=== PATIENT | male | born 1950 | race Caucasian/White ===

== ENCOUNTER 2016-05-19 11:40 | Inpatient (IN) | payer BC, MEDICARE ==
[2016-05-19] MEDS ORDERED: Ondansetron 4 MG/2 ML SDV IVPUSH PRN (12:00)
--- NOTE | 2016-05-19 12:07 | PCM.HP ---
H&P History of Present Illness - General Date of Service: 05/19/16 Admit Problem/Dx: Admission Diagnosis/Problem Admission Diagnosis/Problem Cellulitis Source of Information: Patient, EMS notes reviewed History Limitations: Reports: No limitations - History of Present Illness Initial Comments - Free Text/Narative: Patient was evaluated in the clinic yesterday for cellulitis of the right LE, treated with Rocephin and oral bactrim. Comes into the clinic today for a recheck and feeling worse. Chills and increased pain to the leg today. Onset of Symptoms: Reports: gradual Duration of Symptoms: Reports: Getting worse Location: Reports: lower extremity, right Quality: Reports: Ache - Related Data Allergies/Adverse Reactions: Allergies Allergy/AdvReac Type Severity Reaction Status Date / Time peanut Allergy Severe Anaphylactic Verified 08/24/15 21:44 Shock aspirin Allergy Unknown Stomach Verified 08/24/15 21:44 Upset amoxicillin trihydrate Allergy intolerance Verified 08/24/15 21:44 [From Augmentin] ceftriaxone sodium Allergy intolerance Verified 08/24/15 21:44 [From Rocephin] potassium clavulanate Allergy intolerance Verified 08/24/15 21:44 [From Augmentin] Home Medications: Home Meds Cholecalciferol (Vitamin D3) [Vitamin D3] 1 tab PO DAILY 10/30/13 [History] Clotrimazole/Betamethasone Dip [Lotrisone Cream] 1 applic TOP BID PRN 10/30/13 [ History] EPINEPHrine [Epipen] 0.3 mg IM ASDIRECTED PRN 10/30/13 [History] Metoprolol Succinate [Toprol XL] 25 mg PO DAILY 10/30/13 [History] Vitamin B Complex [B Complex] 1 tab PO BEDTIME 10/30/13 [History] Hydrocodone/Acetaminophen [Hydrocodone-Acetaminophen 5-325] 1 - 2 tab PO Q6H PRN 11/24/13 [History] diphenhydrAMINE [Benadryl] 50 mg PO Q4H PRN #100 cap 10/21/14 [Rx] Ranitidine [Zantac] 150 mg PO BID PRN 08/24/15 [History] Past Medical History HEENT History: Reports: None Cardiovascular History: Reports: Hypertension Respiratory History: Reports: None Gastrointestinal History: Reports: None Genitourinary History: Reports: None Musculoskeletal History: Reports: None Neurological History: Reports: None Psychiatric History: Reports: Depression Endocrine/Metabolic History: Reports: Diabetes, type II, Obesity/BMI 30+ Hematologic History: Reports: None Immunologic History: Reports: None Oncologic (Cancer) History: Reports: Colon Dermatologic History: Reports: Psoriasis - Infectious Disease History Infectious Disease History: Reports: Measles, Mumps - Past Surgical History Head Surgeries/Procedures: Reports: None HEENT Surgical History: Reports: Oral surgery Cardiovascular Surgical History: Reports: None GI Surgical History: Reports: Appendectomy, Bariatric procedure, Cholecystectomy , Colon, Hernia, inguinal Endocrine Surgical History: Reports: None Neurological Surgical History: Reports: None Musculoskeletal Surgical History: Reports: None Oncologic Surgical History: Reports: None Dermatological Surgical History: Reports: None Social & Family History - Family History Family Medical History: Noncontributory - Tobacco Use Smoking Status *Q: Former Smoker Years of Tobacco use: 30 Used Tobacco, but Quit: Yes Month Tobacco Last Used: 0 Second Hand Smoke Exposure: No - Alcohol Use Days Per Week of Alcohol Use: 1 (No previous DWIs, problems with alcohol abuse, etc.) Number of Drinks Per Day: 2 (Usually mixed drinks every 3 months) Total Drinks Per Week: 2 - Recreational Drug Use Recreational Drug Use: No Drug Use in Last 12 Months: Yes Recreational Drug Last Use: Note when necessary narcotic pain medicine with last dose 11/09 - Living Situation & Occupation Living situation: Reports: (2012 from second with divorce in 1994 with 2 children from this marriage), with family (With son-in-law) Occupation: employed (Part-time in [employer], 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) H&P Review of Systems - Review of Systems: Review Of Systems: See Below General: Reports: chills, weakness, fatigue, diaphoresis HEENT: Reports: no symptoms Pulmonary: Reports: Cough Cardiovascular: Reports: no symptoms Gastrointestinal: Reports: Decreased appetite Genitourinary: Reports: frequency Musculoskeletal: Reports: leg pain Skin: Reports: rash (to RLE), erythema Psychiatric: Reports: no symptoms Neurological: Reports: No Symptoms Hematologic/Lymphatic: Reports: no symptoms Immunologic: Reports: no symptoms Exam - Exam Exam: See Below - Vital Signs Vital Signs: Last Vital Signs Temp 98.1 F 05/19/16 11:53 Pulse 68 05/19/16 11:53 Resp 16 05/19/16 11:53 BP 143/70 H 05/19/16 11:53 Pulse Ox 99 05/19/16 11:53 Weight: 230 lb - Exam Quality Assessment: DVT prophylaxis General: alert, oriented, cooperative HEENT: Conjunctiva clear Neck: supple, trachea midline Lungs: Clear to auscultation, Normal respiratory effort Cardiovascular: regular rate, regular rhythm Abdomen: normal bowel sounds, soft Back Exam: normal inspection, full range of motion Extremities: edema, increased warmth Peripheral Pulses: 1+: dorsalis pedis (L), dorsalis pedis (R) Skin: warm, dry, intact, rash Neurological: cranial nerves intact, reflexes equal bilateral Neuro Extensive - Mental Status: alert, oriented x3, normal mood/affect, normal cognition Neuro Extensive - Motor, Sensory, Reflexes: CN II-XII intact, normal gait, normal reflexes Psychiatric: alert, normal affect, normal mood *Q Meaningful Use (ADM) - VTE *Q VTE Criteria *Q: - Stroke *Q Stroke Criteria *Q: - AMI *Q AMI Criteria *Q: - Problem List (1) Cellulitis SNOMED Code(s): 873555942 ICD Code: L03.90 - CELLULITIS, UNSPECIFIED Status: Acute Current Visit: Yes Qualifiers: Site of cellulitis: extremity Site of cellulitis of extremity: lower extremity Laterality: right Qualified Code(s): L03.115 - Cellulitis of right lower limb (2) Type 2 diabetes mellitus SNOMED Code(s): 11823087 ICD Code: E11.9 - TYPE 2 DIABETES MELLITUS WITHOUT COMPLICATIONS Status: Acute Current Visit: Yes Qualifiers: Diabetes mellitus complication status: without complication Diabetes mellitus buttermaker continuous churn insulin use: unspecified intermediate insulin use status Qualified Code(s): E11.9 - Type 2 diabetes mellitus without complications (3) Hypertension SNOMED Code(s): 73685982 ICD Code: I10 - ESSENTIAL (PRIMARY) HYPERTENSION Status: Chronic Priority : Medium Current Visit: No Qualifiers: Hypertension type: essential hypertension Qualified Code(s): I10 - Essential (primary) hypertension Problem List Initiated/Reviewed/Updated: Yes Orders Last 24hrs: Active Orders 24 hr Category Date Time Status Patient Status [ADT] Routine ADT 05/19/16 11:42 Ordered Ambulate [RC] ASDIRECTED Care 05/19/16 11:42 Ordered Blood Glucose Check, Bedside [RC] BIDMEALS Care 05/19/16 11:42 Ordered Height and Weight [RC] DAILY Care 05/19/16 11:42 Ordered Intake and Output [RC] QSHIFT Care 05/19/16 11:44 Ordered May Shower [RC] ASDIRECTED Care 05/19/16 11:42 Ordered Oxygen Therapy [RC] PRN Care 05/19/16 11:42 Ordered Peripheral IV Care [RC] . DIRECTED Care 05/19/16 11:46 Ordered VTE/DVT Education [RC] PER UNIT ROUTINE Care 05/19/16 11:42 Ordered Vital Signs [RC] Q4H Care 05/19/16 11:42 Ordered Consult to Case Management [CONS] Routine Cons 05/19/16 11:42 Ordered Consult to Pharmacy [CONS] Routine Cons 05/19/16 11:42 Active [employer] Diet [DIET] Diet 05/19/16 Lunch Ordered Chest 2V [CR] DAILY Exams 05/19/16 11:45 Ordered Extremity Non Vascular Rt [US] Routine Exams 05/19/16 12:00 Ordered C-REACTIVE PROTEIN [CHEM] DAILY Lab 05/20/16 05:11 Ordered C-REACTIVE PROTEIN [CHEM] DAILY Lab 05/21/16 05:11 Ordered C-REACTIVE PROTEIN [CHEM] DAILY Lab 05/22/16 05:11 Ordered C-REACTIVE PROTEIN [CHEM] DAILY Lab 05/23/16 05:11 Ordered CBC WITH AUTO DIFF [HEME] DAILY Lab 05/20/16 05:11 Ordered CBC WITH AUTO DIFF [HEME] DAILY Lab 05/21/16 05:11 Ordered CBC WITH AUTO DIFF [HEME] DAILY Lab 05/22/16 05:11 Ordered CBC WITH AUTO DIFF [HEME] DAILY Lab 05/23/16 05:11 Ordered COMPREHENSIVE METABOLIC PN,CMP [CHEM] DAILY Lab 05/20/16 05:11 Ordered COMPREHENSIVE METABOLIC PN,CMP [CHEM] DAILY Lab 05/21/16 05:11 Ordered COMPREHENSIVE METABOLIC PN,CMP [CHEM] DAILY Lab 05/22/16 05:11 Ordered COMPREHENSIVE METABOLIC PN,CMP [CHEM] DAILY Lab 05/23/16 05:11 Ordered CULTURE BLOOD [BC] Stat Lab 05/19/16 11:42 Ordered CULTURE BLOOD [BC] Stat Lab 05/19/16 11:46 Ordered CULTURE BLOOD [BC] Stat Lab 05/19/16 11:46 Ordered CULTURE URINE [RM] Stat Lab 05/19/16 11:42 Uncollected UA W/MICROSCOPIC [URIN] DAILY Lab 05/19/16 11:45 Uncollected Acetaminophen [Tylenol] Med 05/19/16 11:42 Ordered 650 mg PO Q4H PRN Acetaminophen/HYDROcodone [[place] 325-5 MG] Med 05/19/16 11:42 Ordered 1 tab PO Q4H PRN Meropenem [Merrem] 1 gm Med 05/19/16 12:00 Ordered Sodium Chloride 0.9% [Normal Saline] 100 ml IV Q8H Ondansetron [Zofran] Med 05/19/16 11:42 Ordered 4 mg IVPUSH Q6H PRN Sodium Chloride 0.9% [Saline Flush] Med 05/19/16 11:42 Ordered 10 ml FLUSH ASDIRECTED PRN Vancomycin 1 gm Med 05/19/16 12:00 Ordered Dextrose 5% in Water 250 ml IV Q12H Blood Culture x2 Reflex Set [OM.PC] Stat Oth 05/19/16 11:42 Ordered Peripheral IV Insertion Adult [OM.PC] Routine Oth 05/19/16 11:42 Ordered Resuscitation Status Routine Resus Stat 05/19/16 11:42 Ordered Medication Orders Acetaminophen (Tylenol) 650 mg PO Q4H PRN PRN Reason: Pain (Mild 1-3)/fever Hydrocodone Bitart/Acetaminophen ([place] 325-5 Mg) 1 tab PO Q4H PRN PRN Reason: Pain (moderate 4-6) Meropenem 1 gm/ Sodium (Chloride) 100 mls @ 200 mls/hr IV Q8H [facility] Vancomycin HCl 1 gm/ Dextrose/ (Water) 250 mls @ 165 mls/hr IV Q12H [facility] Ondansetron HCl (Zofran) 4 mg IVPUSH Q6H PRN PRN Reason: Nausea/Vomiting Sodium Chloride (Saline Flush) 10 ml FLUSH ASDIRECTED PRN PRN Reason: Keep Vein Open Assessment/Plan Comment:: Patient is admitted to Dr Adkins, started on IV Vanco and Merrem. Blood cultures are obtained. Ultrasound of RLE ordered. Tomasz monitor blood sugars. Patient requires inpatient status as failed outpatient treatment was done. Given IM Rocephin in the clinic, pharmacy to check as hospital records shows intolerance to it. Pharmacy to follow IV Vanco. Recheck labs in the morning. Patient had no further questions and agreed to the plan of care. Carmela Vega,CAR CLEANER
[2016-05-19] MEDS ORDERED: Betamethasone Dipropionate/Clotrimazole 0.05-1% Crm 15 GM Tube TOP PRN (13:24)
[2016-05-19] MEDS ORDERED: Nystatin Crm 30 GM Tube TOP PRN (13:24)
[2016-05-19] MEDS: Meropenem 1 GM in Sodium Chloride 0.9% 100 ML IV SCH ×2 (13:33→19:31)
[2016-05-19] MEDS: Sodium Chloride 0.9% 10 ML Syringe FLUSH PRN (13:33)
[2016-05-19] MEDS ORDERED: Lactated Ringers 1,000 ML IV SCH (15:30)
[2016-05-19] MEDS: Acetaminophen 325 MG Tab PO PRN ×2 (17:00→21:19)
[2016-05-19] MEDS: Sodium Chloride 0.9% 1,000 ML IV SCH (17:36)
[2016-05-19] MEDS: Insulin Aspart 100 Units/ML 3 ML Pen SUBCUT SCH (18:15)
[2016-05-19] MEDS: Donepezil 5 MG Tab PO SCH (19:31)
[2016-05-20] MEDS: Sodium Chloride 0.9% 10 ML Syringe FLUSH PRN ×2 (00:36→03:59)
[2016-05-20] MEDS: Acetaminophen 325 MG Tab PO PRN ×3 (01:40→17:11)
[2016-05-20] MEDS: Acetaminophen/HYDROcodone 325-5 MG Tab PO PRN ×2 (01:41→17:10)
[2016-05-20] MEDS: Meropenem 1 GM in Sodium Chloride 0.9% 100 ML IV SCH ×3 (04:00→19:41)
[2016-05-20] MEDS: Ferrous Sulfate 325 MG Tab PO SCH (07:29)
[2016-05-20] MEDS: metFORMIN 500 MG Tab PO SCH (07:29)
[2016-05-20] MEDS: Cholecalciferol (Vitamin D3) 1,000 Unit Tab PO SCH (07:29)
[2016-05-20] MEDS: Enoxaparin 40 MG/0.4 ML Syringe SUBCUT SCH (07:29)
[2016-05-20] MEDS: Metoprolol Succinate 25 MG Tab.ER PO SCH (07:29)
[2016-05-20] MEDS: Insulin Aspart 100 Units/ML 3 ML Pen SUBCUT SCH ×3 (07:30→17:12)
[2016-05-20 07:50] LABS: CHLORIDE,CL 102 mmol/L (98-107); SODIUM,NA 138 mmol/L (136-145)
[2016-05-20] MEDS ORDERED: Ibuprofen 600 MG Tab PO ONE (10:22)
--- NOTE | 2016-05-20 12:16 | PCM.SN ---
- Free Text/Narrative Note: 05/20/2016 Patient states taking "quite a few hydrocodone in 12 hours". Liver function tests noted to be elevated which could be from the hydrocodone/tylenol or the infection. Will monitor. Patient is on Isoniazid 300mg daily, patient was started on this medication by Dr Mary CHRIS at [facility] for latent TB infection and needs to stay on the medication for a total of 9 months and it is not to be stopped. Will continue the medication and will notify pharmacy. Carmela Vega,FUNERAL LIMOUSINE DRIVER
[2016-05-20] MEDS: ISONIAZID 300 MG PO SCH (13:43)
[2016-05-20] MEDS: Sodium Chloride 0.9% 1,000 ML IV SCH (13:44)
--- NOTE | 2016-05-20 17:28 | PCM.PN ---
- General Info Date of Service: 05/20/16 Admission Dx/Problem (Free Text): Admission Diagnosis/Problem Admission Diagnosis/Problem Cellulitis Functional Status: Reports: pain controlled - Review of Systems General: Reports: Fever, Night Sweats HEENT: Reports: no symptoms Pulmonary: Reports: no symptoms Cardiovascular: Reports: No Symptoms Gastrointestinal: Reports: No symptoms Genitourinary: Reports: no symptoms Musculoskeletal: Reports: leg pain Skin: Reports: rash (right leg) Neurological: Reports: No Symptoms Psychiatric: Reports: no symptoms - Patient Data Vitals - most recent: Last Vital Signs Temp 98.3 F 05/20/16 12:00 Pulse 69 05/20/16 12:00 Resp 20 05/20/16 12:00 BP 117/60 05/20/16 12:00 Pulse Ox 94 L 05/20/16 12:00 Weight - most recent: 230 lb 3.2 oz I&O - last 24 hours: Intake & Output 05/20/16 05/20/16 05/20/16 06:59 14:59 22:59 Intake Total 1198 1240 Output Total 400 Balance 798 1240 Lab Results last 24 hrs: Laboratory Results - last 24 hr 05/19/16 05/19/16 05/20/16 Range/Units 17:32 21:10 06:55 WBC 9.7 (4.0-10.2) K/uL RBC 4.14 L (4.33-5.41) M/uL Hgb 11.6 L (13.1-16.8) g/dL Hct 36.7 L (39.0-49.0) % MCV 88.6 (84.0-98.0) fL MCH 28.0 L (28.2-33.3) pg MCHC 31.6 L (31.7-36.0) g/dL RDW 13.7 (11.2-14.1) % Plt Count 134 L (150-350) K/uL Neut % (Auto) 73.3 (45.0-80.0) % Lymph % (Auto) 15.8 (10.0-50.0) % Benson % (Auto) 9.8 (2.0-14.0) % Eos % (Auto) 0.9 (0.0-5.0) % Baso % (Auto) 0.2 (0.0-2.0) % Neut # (Auto) 7.13 H (1.40-7.00) K/uL Lymph # (Auto) 1.54 (0.50-3.50) K/uL Benson # (Auto) 0.95 (0.00-1.00) K/uL Eos # (Auto) 0.09 (0.00-0.50) K/uL Baso # (Auto) 0.02 (0.00-0.20) K/uL Sodium (136-145) mmol/L Potassium (3.5-5.1) mmol/L Chloride (98-107) mmol/L Carbon Dioxide (21.0-32.0) mmol/L BUN (7-18) mg/dL Creatinine (0.51-1.17) mg/dL Est Cr Clr Drug Dosing mL/min Estimated GFR (MDRD) mL/min Glucose (74-106) mg/dL POC Glucose 302 H* 213 H (65-110) mg/dl Lactic Acid (0.4-2.0) mmol/L Calcium (8.5-10.1) mg/dL Magnesium (1.8-2.4) mg/dL Total Bilirubin (0.2-1.0) mg/dL AST (15-37) U/L ALT (12-78) U/L Alkaline Phosphatase (46-116) IU/L C-Reactive Protein (<=0.9) mg/dL Total Protein (6.4-8.2) g/dL Albumin (3.4-5.0) g/dL Vancomycin Trough (10-20) ug/mL 05/20/16 05/20/16 05/20/16 Range/Units 06:55 06:55 07:12 WBC (4.0-10.2) K/uL RBC (4.33-5.41) M/uL Hgb (13.1-16.8) g/dL Hct (39.0-49.0) % MCV (84.0-98.0) fL MCH (28.2-33.3) pg MCHC (31.7-36.0) g/dL RDW (11.2-14.1) % Plt Count (150-350) K/uL Neut % (Auto) (45.0-80.0) % Lymph % (Auto) (10.0-50.0) % Benson % (Auto) (2.0-14.0) % Eos % (Auto) (0.0-5.0) % Baso % (Auto) (0.0-2.0) % Neut # (Auto) (1.40-7.00) K/uL Lymph # (Auto) (0.50-3.50) K/uL Benson # (Auto) (0.00-1.00) K/uL Eos # (Auto) (0.00-0.50) K/uL Baso # (Auto) (0.00-0.20) K/uL Sodium 138 (136-145) mmol/L Potassium 3.9 (3.5-5.1) mmol/L Chloride 102 (98-107) mmol/L Carbon Dioxide 25.8 (21.0-32.0) mmol/L BUN 15 (7-18) mg/dL Creatinine 0.90 (0.51-1.17) mg/dL Est Cr Clr Drug Dosing 81.55 mL/min Estimated GFR (MDRD) > 60 mL/min Glucose 178 H (74-106) mg/dL POC Glucose 175 H (65-110) mg/dl Lactic Acid 1.3 (0.4-2.0) mmol/L Calcium 7.9 L (8.5-10.1) mg/dL Magnesium 2.0 (1.8-2.4) mg/dL Total Bilirubin 0.4 (0.2-1.0) mg/dL AST 77 H (15-37) U/L ALT 116 H (12-78) U/L Alkaline Phosphatase 113 (46-116) IU/L C-Reactive Protein 26.2 H (<=0.9) mg/dL Total Protein 6.6 (6.4-8.2) g/dL Albumin 2.6 L (3.4-5.0) g/dL Vancomycin Trough (10-20) ug/mL 05/20/16 05/20/16 05/20/16 Range/Units 11:37 12:30 16:59 WBC (4.0-10.2) K/uL RBC (4.33-5.41) M/uL Hgb (13.1-16.8) g/dL Hct (39.0-49.0) % MCV (84.0-98.0) fL MCH (28.2-33.3) pg MCHC (31.7-36.0) g/dL RDW (11.2-14.1) % Plt Count (150-350) K/uL Neut % (Auto) (45.0-80.0) % Lymph % (Auto) (10.0-50.0) % Benson % (Auto) (2.0-14.0) % Eos % (Auto) (0.0-5.0) % Baso % (Auto) (0.0-2.0) % Neut # (Auto) (1.40-7.00) K/uL Lymph # (Auto) (0.50-3.50) K/uL Benson # (Auto) (0.00-1.00) K/uL Eos # (Auto) (0.00-0.50) K/uL Baso # (Auto) (0.00-0.20) K/uL Sodium (136-145) mmol/L Potassium (3.5-5.1) mmol/L Chloride (98-107) mmol/L Carbon Dioxide (21.0-32.0) mmol/L BUN (7-18) mg/dL Creatinine (0.51-1.17) mg/dL Est Cr Clr Drug Dosing mL/min Estimated GFR (MDRD) mL/min Glucose (74-106) mg/dL POC Glucose 124 H 137 H (65-110) mg/dl Lactic Acid (0.4-2.0) mmol/L Calcium (8.5-10.1) mg/dL Magnesium (1.8-2.4) mg/dL Total Bilirubin (0.2-1.0) mg/dL AST (15-37) U/L ALT (12-78) U/L Alkaline Phosphatase (46-116) IU/L C-Reactive Protein (<=0.9) mg/dL Total Protein (6.4-8.2) g/dL Albumin (3.4-5.0) g/dL Vancomycin Trough 6.9 L (10-20) ug/mL Arnie Results last 24 hrs: Microbiology 05/19/16 12:05 Aerobic Blood Culture - Preliminary Blood - Venous NO GROWTH AFTER 1 DAY Anaerobic Blood Culture - Preliminary NO GROWTH AFTER 1 DAY 05/19/16 12:00 Aerobic Blood Culture - Preliminary Blood NO GROWTH AFTER 1 DAY Anaerobic Blood Culture - Preliminary NO GROWTH AFTER 1 DAY Med Orders - Current: Current Medications Acetaminophen (Tylenol Extra Strength) 1,000 mg PO Q8H [facility] Betamethasone/Clotrimazole (Lotrisone) 0 gm TOP BID PRN PRN Reason: Rash Cholecalciferol (Vitamin D3) 1,000 units PO DAILY [facility] Last Admin: 05/20/16 07:29 Dose: 1,000 units Donepezil HCl (Aricept) 5 mg PO BEDTIME [facility] Last Admin: 05/19/16 19:31 Dose: 5 mg Enoxaparin Sodium (Lovenox) 40 mg SUBCUT DAILY [facility] Last Admin: 05/20/16 07:29 Dose: 40 mg Ferrous Sulfate (Ferrous Sulfate) 325 mg PO DAILY [facility] Last Admin: 05/20/16 07:29 Dose: 325 mg Meropenem 1 gm/ Sodium (Chloride) 100 mls @ 200 mls/hr IV Q8H [facility] Last Admin: 05/20/16 12:09 Dose: 200 mls/hr Sodium Chloride (Normal Saline) 1,000 mls @ 100 mls/hr IV ASDIRECTED [facility] Last Admin: 05/20/16 13:44 Dose: 100 mls/hr Vancomycin HCl 1.25 gm/ Sodium (Chloride) 250 mls @ 135 mls/hr IV Q12H [facility] Last Admin: 05/20/16 13:44 Dose: 135 mls/hr Ibuprofen (Motrin) 800 mg PO Q8H [facility] Insulin Aspart (Novolog) 0 unit SUBCUT TIDMEALS [facility] PRN Reason: Protocol Last Admin: 05/20/16 17:12 Dose: Not Given Metformin HCl (Glucophage) 500 mg PO DAILY [facility] Last Admin: 05/20/16 07:29 Dose: 500 mg Metoprolol Succinate (Toprol Xl) 25 mg PO DAILY [facility] Last Admin: 05/20/16 07:29 Dose: 25 mg Isoniazid 300mg (Tablets) 1 each PO DAILY [facility] Last Admin: 05/20/16 13:43 Dose: 1 each Nystatin (Nystatin Crm) 0 gm TOP QID PRN PRN Reason: other Ondansetron HCl (Zofran) 4 mg IVPUSH Q6H PRN PRN Reason: Nausea/Vomiting Oxycodone HCl (Oxycodone) 5 mg PO Q4H PRN PRN Reason: Pain Sodium Chloride (Saline Flush) 10 ml FLUSH ASDIRECTED PRN PRN Reason: Keep Vein Open Last Admin: 05/20/16 03:59 Dose: 10 ml Discontinued Medications Acetaminophen (Tylenol) 650 mg PO Q4H PRN PRN Reason: Pain (Mild 1-3)/fever Last Admin: 05/20/16 17:11 Dose: 650 mg Hydrocodone Bitart/Acetaminophen ([place] 325-5 Mg) 1 tab PO Q4H PRN PRN Reason: Pain (moderate 4-6) Last Admin: 05/20/16 17:10 Dose: 1 tab Vancomycin HCl 1 gm/ Sodium (Chloride) 250 mls @ 165 mls/hr IV Q12H [facility] Last Admin: 05/20/16 00:36 Dose: 165 mls/hr Lactated Ringer's (Ringers, Lactated) 1,000 mls @ 50 mls/hr IV ASDIRECTED [facility] Last Admin: 05/19/16 16:14 Dose: 50 mls/hr Ibuprofen (Motrin) 600 mg PO ONETIME ONE Stop: 05/20/16 10:23 Last Admin: 05/20/16 10:30 Dose: 600 mg - Exam General: alert, cooperative, mild distress HEENT: Mucous membr. moist/pink Neck: trachea midline, no JVD Lungs: Clear to auscultation Cardiovascular: Regular Rate, Regular Rhythm Abdomen: bowel sounds present, soft, no tenderness, no distension (Male) Exam: Deferred Back Exam: normal inspection Extremities: edema (right) Skin: rash (RLE red petechiae excoriation gong) Wound/Incisions: no drainage, erythema, erythema improving Neurological: no new focal deficit Psy/Mental Status: alert, normal affect, normal mood - Problem List & Annotations (1) Rheumatoid arthritis SNOMED Code(s): 62085886 Code(s): M06.9 - RHEUMATOID ARTHRITIS, UNSPECIFIED Status: Acute Priority : Medium Current Visit: Yes Qualifiers: Rheumatoid arthritis location: multiple sites Rheumatoid factor presence: unspecified presence Qualified Code(s): M06.9 - Rheumatoid arthritis, unspecified (2) Cellulitis SNOMED Code(s): 840809406 Code(s): L03.90 - CELLULITIS, UNSPECIFIED Status: Acute Current Visit: Yes Qualifiers: Site of cellulitis: extremity Site of cellulitis of extremity: lower extremity Laterality: right Qualified Code(s): L03.115 - Cellulitis of right lower limb (3) Type 2 diabetes mellitus SNOMED Code(s): 30960730 Code(s): E11.9 - TYPE 2 DIABETES MELLITUS WITHOUT COMPLICATIONS Status: Acute Current Visit: Yes Qualifiers: Diabetes mellitus complication status: without complication Diabetes mellitus group home insulin use: unspecified intermediate card tender insulin use status Qualified Code(s): E11.9 - Type 2 diabetes mellitus without complications (4) COPD (chronic obstructive pulmonary disease) SNOMED Code(s): 15219981 Code(s): J44.9 - CHRONIC OBSTRUCTIVE PULMONARY DISEASE, UNSPECIFIED Status : Chronic Priority: Medium Current Visit: No Annotation/Comment:: No current inhaler or nebulizer therapy. Continue to observe closely by his regular provider with current mild bronchitis (5) Heart disease SNOMED Code(s): 81730236 Code(s): I51.9 - HEART DISEASE, UNSPECIFIED Status: Chronic Priority: Medium Current Visit: No Annotation/Comment:: No recent chest pain or anginal complaints (6) Hyperlipidemia SNOMED Code(s): 25427042 Code(s): E78.5 - HYPERLIPIDEMIA, UNSPECIFIED Status: Chronic Priority: Medium Current Visit: No Annotation/Comment:: Not currently under medical therapy. Continue to observe closely by his regular provider especially light of persistent obesity. Statin therapy also recommended secondary to his history of heart disease (7) Hypertension SNOMED Code(s): 33071069 Code(s): I10 - ESSENTIAL (PRIMARY) HYPERTENSION Status: Chronic Priority : Medium Current Visit: No Qualifiers: Hypertension type: essential hypertension Qualified Code(s): I10 - Essential (primary) hypertension (8) Mixed anxiety depressive disorder SNOMED Code(s): 634676945 Code(s): F41.8 - OTHER SPECIFIED ANXIETY DISORDERS Status: Chronic Priority: Medium Current Visit: No Annotation/Comment:: Stable by patient history (9) Osteoarthritis SNOMED Code(s): 955108143 Code(s): M19.90 - UNSPECIFIED OSTEOARTHRITIS, UNSPECIFIED SITE Status: Chronic Priority: Medium Current Visit: No Annotation/Comment:: Stable by patient history (10) Peptic reflux disease SNOMED Code(s): 36747663 Code(s): K21.9 - GASTRO-ESOPHAGEAL REFLUX DISEASE WITHOUT ESOPHAGITIS Status: Chronic Priority: High Current Visit: No Annotation/Comment:: Refractory to low-dose Zantac. Continue to watch closely by his regular provider especially if no improvement with today's increased Zantac therapy. Note previous history of esophageal stenosis, recurrent burping today, etc. as above. 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 Status: Acute Priority: Medium Current Visit: Yes (12) Abnormal LFTs (liver function tests) SNOMED Code(s): 363486910 Code(s): R79.89 - OTHER SPECIFIED ABNORMAL FINDINGS OF BLOOD CHEMISTRY Status: Acute Priority: High Current Visit: Yes - Problem List Review Problem List Initiated/Reviewed/Updated: Yes - My Orders Last 24 Hours: My Active Orders 05/19/16 18:00 Insulin Aspart [NovoLOG] See Protocol SUBCUT TIDMEALS 05/19/16 21:00 Blood Glucose Check, Bedside [RC] ONETIME 05/20/16 17:13 oxyCODONE 5 mg PO Q4H PRN 05/20/16 20:00 Ibuprofen [Motrin] 800 mg PO Q8H 05/21/16 00:00 Acetaminophen [Tylenol Extra Strength] 1,000 mg PO Q8H - Plan Plan:: Patient is admitted to Dr Adkins, started on IV Vanco and Merrem. Blood cultures are obtained. Ultrasound of RLE ordered. Tomasz monitor blood sugars. Patient requires inpatient status as failed outpatient treatment was done. Given IM Rocephin in the clinic, pharmacy to check as hospital records shows intolerance to it. Pharmacy to follow IV Vanco. Recheck labs in the morning. Patient had no further questions and agreed to the plan of care. Carmela Vega,CORRECTIONAL MANAGER 05/20/16 Jed Chawla MD Fevers off and on today. Leg a little better- less pain. Labs slight improvement except elevated LFTs. Continue therapy.
[2016-05-20] MEDS: Ibuprofen 400 MG Tab PO SCH (19:50)
[2016-05-20] MEDS: Donepezil 5 MG Tab PO SCH (19:50)
[2016-05-20] MEDS: Sodium Chloride 0.9% 10 ML Syringe FLUSH SCH (20:48)
[2016-05-21] MEDS: Acetaminophen 500 MG Tab PO SCH ×3 (00:34→15:35)
[2016-05-21] MEDS: Meropenem 1 GM in Sodium Chloride 0.9% 100 ML IV SCH ×3 (04:15→21:11)
[2016-05-21] MEDS: Ibuprofen 400 MG Tab PO SCH ×3 (04:15→21:16)
[2016-05-21] MEDS: Metoprolol Succinate 25 MG Tab.ER PO SCH (07:25)
[2016-05-21] MEDS: Ferrous Sulfate 325 MG Tab PO SCH (07:25)
[2016-05-21] MEDS: Cholecalciferol (Vitamin D3) 1,000 Unit Tab PO SCH (07:26)
[2016-05-21] MEDS: metFORMIN 500 MG Tab PO SCH (07:26)
[2016-05-21] MEDS: Sodium Chloride 0.9% 10 ML Syringe FLUSH SCH ×2 (07:27→21:12)
[2016-05-21] MEDS: Enoxaparin 40 MG/0.4 ML Syringe SUBCUT SCH (07:29)
[2016-05-21] MEDS: Insulin Aspart 100 Units/ML 3 ML Pen SUBCUT SCH ×3 (07:31→17:10)
[2016-05-21] MEDS: ISONIAZID 300 MG PO SCH (07:31)
[2016-05-21 08:26] LABS: CHLORIDE,CL 108 mmol/L (98-107); SODIUM,NA 141 mmol/L (136-145)
[2016-05-21] MEDS: Sodium Chloride 0.9% 10 ML Syringe FLUSH PRN (13:30)
[2016-05-21] MEDS ORDERED: Promethazine 25 MG/ML SDV IM PRN (13:30)
[2016-05-21] MEDS ORDERED: Fluconazole 100 MG Tab PO ONE (18:00)
--- NOTE | 2016-05-21 18:06 | PCM.PN ---
- General Info Date of Service: 05/21/16 Functional Status: Reports: pain controlled, tolerating diet, ambulating - Review of Systems General: Reports: No Symptoms HEENT: Reports: no symptoms Pulmonary: Reports: no symptoms Cardiovascular: Reports: No Symptoms Gastrointestinal: Reports: No symptoms Genitourinary: Reports: no symptoms Musculoskeletal: Reports: no symptoms Skin: Reports: rash (RLE improving), other (RLE edema) Neurological: Reports: No Symptoms Psychiatric: Reports: no symptoms - Patient Data Vitals - most recent: Last Vital Signs Temp 99.1 F 05/21/16 16:00 Pulse 67 05/21/16 16:00 Resp 18 05/21/16 16:00 BP 154/75 H 05/21/16 16:00 Pulse Ox 99 05/21/16 16:00 Weight - most recent: 234 lb I&O - last 24 hours: Intake & Output 05/21/16 05/21/16 05/21/16 06:59 14:59 22:59 Intake Total 974 569 3989 Output Total 500 Balance 250 850 570 Lab Results last 24 hrs: Laboratory Results - last 24 hr 05/20/16 05/21/16 05/21/16 Range/Units 22:21 07:15 07:15 WBC 7.2 (4.0-10.2) K/uL RBC 3.67 L (4.33-5.41) M/uL Hgb 10.5 L (13.1-16.8) g/dL Hct 32.8 L (39.0-49.0) % MCV 89.4 (84.0-98.0) fL MCH 28.6 (28.2-33.3) pg MCHC 32.0 (31.7-36.0) g/dL RDW 13.7 (11.2-14.1) % Plt Count 132 L (150-350) K/uL Neut % (Auto) 69.9 (45.0-80.0) % Lymph % (Auto) 15.4 (10.0-50.0) % [place] % (Auto) 11.9 (2.0-14.0) % Eos % (Auto) 2.4 (0.0-5.0) % Baso % (Auto) 0.4 (0.0-2.0) % Neut # (Auto) 5.05 (1.40-7.00) K/uL Lymph # (Auto) 1.11 (0.50-3.50) K/uL [place] # (Auto) 0.86 (0.00-1.00) K/uL Eos # (Auto) 0.17 (0.00-0.50) K/uL Baso # (Auto) 0.03 (0.00-0.20) K/uL Sodium 141 (136-145) mmol/L Potassium 3.7 (3.5-5.1) mmol/L Chloride 108 H (98-107) mmol/L Carbon Dioxide 25.0 (21.0-32.0) mmol/L BUN 12 (7-18) mg/dL Creatinine 0.83 (0.51-1.17) mg/dL Est Cr Clr Drug Dosing 88.43 mL/min Estimated GFR (MDRD) > 60 mL/min Glucose 148 H (74-106) mg/dL POC Glucose 186 H (65-110) mg/dl Calcium 7.5 L (8.5-10.1) mg/dL Total Bilirubin 0.4 (0.2-1.0) mg/dL AST 28 (15-37) U/L ALT 87 H (12-78) U/L Alkaline Phosphatase 92 (46-116) IU/L C-Reactive Protein 20.3 H (<=0.9) mg/dL Total Protein 5.9 L (6.4-8.2) g/dL Albumin 2.2 L (3.4-5.0) g/dL 05/21/16 05/21/16 05/21/16 Range/Units 07:21 11:35 17:06 WBC (4.0-10.2) K/uL RBC (4.33-5.41) M/uL Hgb (13.1-16.8) g/dL Hct (39.0-49.0) % MCV (84.0-98.0) fL MCH (28.2-33.3) pg MCHC (31.7-36.0) g/dL RDW (11.2-14.1) % Plt Count (150-350) K/uL Neut % (Auto) (45.0-80.0) % Lymph % (Auto) (10.0-50.0) % [place] % (Auto) (2.0-14.0) % Eos % (Auto) (0.0-5.0) % Baso % (Auto) (0.0-2.0) % Neut # (Auto) (1.40-7.00) K/uL Lymph # (Auto) (0.50-3.50) K/uL [place] # (Auto) (0.00-1.00) K/uL Eos # (Auto) (0.00-0.50) K/uL Baso # (Auto) (0.00-0.20) K/uL Sodium (136-145) mmol/L Potassium (3.5-5.1) mmol/L Chloride (98-107) mmol/L Carbon Dioxide (21.0-32.0) mmol/L BUN (7-18) mg/dL Creatinine (0.51-1.17) mg/dL Est Cr Clr Drug Dosing mL/min Estimated GFR (MDRD) mL/min Glucose (74-106) mg/dL POC Glucose 133 H 163 H 128 H (65-110) mg/dl Calcium (8.5-10.1) mg/dL Total Bilirubin (0.2-1.0) mg/dL AST (15-37) U/L ALT (12-78) U/L Alkaline Phosphatase (46-116) IU/L C-Reactive Protein (<=0.9) mg/dL Total Protein (6.4-8.2) g/dL Albumin (3.4-5.0) g/dL Arnie Results last 24 hrs: Microbiology 05/19/16 12:05 Aerobic Blood Culture - Preliminary Blood - Venous NO GROWTH AFTER 2 DAYS Anaerobic Blood Culture - Preliminary NO GROWTH AFTER 2 DAYS 05/19/16 12:00 Aerobic Blood Culture - Preliminary Blood NO GROWTH AFTER 2 DAYS Anaerobic Blood Culture - Preliminary NO GROWTH AFTER 2 DAYS 05/19/16 15:10 Urine Culture - Final Urine, Voided NO GROWTH AFTER 2 DAYS Med Orders - Current: Current Medications Acetaminophen (Tylenol Extra Strength) 1,000 mg PO Q8H [facility] Last Admin: 05/21/16 15:35 Dose: 1,000 mg Betamethasone/Clotrimazole (Lotrisone) 0 gm TOP BID PRN PRN Reason: Rash Cholecalciferol (Vitamin D3) 1,000 units PO DAILY [facility] Last Admin: 05/21/16 07:26 Dose: 1,000 units Donepezil HCl (Aricept) 5 mg PO BEDTIME [facility] Last Admin: 05/20/16 19:50 Dose: 5 mg Ferrous Sulfate (Ferrous Sulfate) 325 mg PO DAILY [facility] Last Admin: 05/21/16 07:25 Dose: 325 mg Fluconazole (Diflucan) 100 mg PO ONETIME ONE Stop: 05/21/16 18:01 Last Admin: 05/21/16 17:09 Dose: 100 mg Fluconazole (Diflucan) 50 mg PO DAILY [facility] Meropenem 1 gm/ Sodium (Chloride) 100 mls @ 200 mls/hr IV Q8H [facility] Last Admin: 05/21/16 12:20 Dose: 200 mls/hr Vancomycin HCl 1.25 gm/ Sodium (Chloride) 250 mls @ 135 mls/hr IV Q12H [facility] Last Admin: 05/21/16 13:28 Dose: 135 mls/hr Ibuprofen (Motrin) 800 mg PO Q8H [facility] Last Admin: 05/21/16 12:21 Dose: 800 mg Insulin Aspart (Novolog) 0 unit SUBCUT TIDMEALS [facility] PRN Reason: Protocol Last Admin: 05/21/16 17:10 Dose: Not Given Metformin HCl (Glucophage) 500 mg PO DAILY [facility] Last Admin: 05/21/16 07:26 Dose: 500 mg Metoprolol Succinate (Toprol Xl) 25 mg PO DAILY [facility] Last Admin: 05/21/16 07:25 Dose: 25 mg Isoniazid 300mg (Tablets) 1 each PO DAILY [facility] Last Admin: 05/21/16 07:31 Dose: 1 each Nystatin (Nystatin Crm) 0 gm TOP QID PRN PRN Reason: other Oxycodone HCl (Oxycodone) 5 mg PO Q4H PRN PRN Reason: Pain Promethazine HCl (Phenergan) 25 mg IM Q6H PRN PRN Reason: Nausea/Vomiting Sodium Chloride (Saline Flush) 10 ml FLUSH ASDIRECTED PRN PRN Reason: Keep Vein Open Last Admin: 05/21/16 13:30 Dose: 10 ml Sodium Chloride (Saline Flush) 10 ml FLUSH Q12HR [facility] Last Admin: 05/21/16 07:27 Dose: 10 ml Discontinued Medications Acetaminophen (Tylenol) 650 mg PO Q4H PRN PRN Reason: Pain (Mild 1-3)/fever Last Admin: 05/20/16 17:11 Dose: 650 mg Hydrocodone Bitart/Acetaminophen ([place] 325-5 Mg) 1 tab PO Q4H PRN PRN Reason: Pain (moderate 4-6) Last Admin: 05/20/16 17:10 Dose: 1 tab Enoxaparin Sodium (Lovenox) 40 mg SUBCUT DAILY [facility] Last Admin: 05/21/16 07:29 Dose: 40 mg Vancomycin HCl 1 gm/ Sodium (Chloride) 250 mls @ 165 mls/hr IV Q12H [facility] Last Admin: 05/20/16 00:36 Dose: 165 mls/hr Lactated Ringer's (Ringers, Lactated) 1,000 mls @ 50 mls/hr IV ASDIRECTED [facility] Last Admin: 05/19/16 16:14 Dose: 50 mls/hr Sodium Chloride (Normal Saline) 1,000 mls @ 100 mls/hr IV ASDIRECTED [facility] Stop: 05/20/16 23:00 Last Admin: 05/20/16 13:44 Dose: 100 mls/hr Ibuprofen (Motrin) 600 mg PO ONETIME ONE Stop: 05/20/16 10:23 Last Admin: 05/20/16 10:30 Dose: 600 mg Ondansetron HCl (Zofran) 4 mg IVPUSH Q6H PRN PRN Reason: Nausea/Vomiting - Exam Quality Assessment: DVT prophylaxis (stopped due to decreased platelets) General: alert, cooperative, no acute distress HEENT: Mucous membr. moist/pink Neck: trachea midline, no JVD Lungs: Clear to auscultation, Normal respiratory effort Cardiovascular: Regular Rate, Regular Rhythm Abdomen: bowel sounds present, soft, no tenderness, no distension (Male) Exam: Deferred Back Exam: normal inspection Extremities: edema (RLE) Skin: warm, dry, intact, rash (RLE) Wound/Incisions: no drainage, erythema improving Neurological: no new focal deficit Psy/Mental Status: alert, normal affect, normal mood - Problem List & Annotations (1) Rheumatoid arthritis SNOMED Code(s): 32420058 Code(s): M06.9 - RHEUMATOID ARTHRITIS, UNSPECIFIED Status: Acute Priority : Medium Current Visit: Yes Qualifiers: Rheumatoid arthritis location: multiple sites Rheumatoid factor presence: unspecified presence Qualified Code(s): M06.9 - Rheumatoid arthritis, unspecified (2) Cellulitis SNOMED Code(s): 146665748 Code(s): L03.90 - CELLULITIS, UNSPECIFIED Status: Acute Current Visit: Yes Qualifiers: Site of cellulitis: extremity Site of cellulitis of extremity: lower extremity Laterality: right Qualified Code(s): L03.115 - Cellulitis of right lower limb (3) Type 2 diabetes mellitus SNOMED Code(s): 99180539 Code(s): E11.9 - TYPE 2 DIABETES MELLITUS WITHOUT COMPLICATIONS Status: Acute Current Visit: Yes Qualifiers: Diabetes mellitus complication status: without complication Diabetes mellitus intermodal owner operator truck driver insulin use: unspecified intermodal owner operator truck driver insulin use status Qualified Code(s): E11.9 - Type 2 diabetes mellitus without complications (4) COPD (chronic obstructive pulmonary disease) SNOMED Code(s): 63036958 Code(s): J44.9 - CHRONIC OBSTRUCTIVE PULMONARY DISEASE, UNSPECIFIED Status : Chronic Priority: Medium Current Visit: No Annotation/Comment:: No current inhaler or nebulizer therapy. Continue to observe closely by his regular provider with current mild bronchitis (5) Heart disease SNOMED Code(s): 56351042 Code(s): I51.9 - HEART DISEASE, UNSPECIFIED Status: Chronic Priority: Medium Current Visit: No Annotation/Comment:: No recent chest pain or anginal complaints (6) Hyperlipidemia SNOMED Code(s): 31758385 Code(s): E78.5 - HYPERLIPIDEMIA, UNSPECIFIED Status: Chronic Priority: Medium Current Visit: No Annotation/Comment:: Not currently under medical therapy. Continue to observe closely by his regular provider especially light of persistent obesity. Statin therapy also recommended secondary to his history of heart disease (7) Hypertension SNOMED Code(s): 33087447 Code(s): I10 - ESSENTIAL (PRIMARY) HYPERTENSION Status: Chronic Priority : Medium Current Visit: No Qualifiers: Hypertension type: essential hypertension Qualified Code(s): I10 - Essential (primary) hypertension (8) Mixed anxiety depressive disorder SNOMED Code(s): 206333465 Code(s): F41.8 - OTHER SPECIFIED ANXIETY DISORDERS Status: Chronic Priority: Medium Current Visit: No Annotation/Comment:: Stable by patient history (9) Osteoarthritis SNOMED Code(s): 134263708 Code(s): M19.90 - UNSPECIFIED OSTEOARTHRITIS, UNSPECIFIED SITE Status: Chronic Priority: Medium Current Visit: No Annotation/Comment:: Stable by patient history (10) Peptic reflux disease SNOMED Code(s): 63446664 Code(s): K21.9 - GASTRO-ESOPHAGEAL REFLUX DISEASE WITHOUT ESOPHAGITIS Status: Chronic Priority: High Current Visit: No Annotation/Comment:: Refractory to low-dose Zantac. Continue to watch closely by his regular provider especially if no improvement with today's increased Zantac therapy. Note previous history of esophageal stenosis, recurrent burping today, etc. as above. 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 Status: Acute Priority: Medium Current Visit: Yes (12) Abnormal LFTs (liver function tests) SNOMED Code(s): 489746815 Code(s): R79.89 - OTHER SPECIFIED ABNORMAL FINDINGS OF BLOOD CHEMISTRY Status: Acute Priority: High Current Visit: Yes - Problem List Review Problem List Initiated/Reviewed/Updated: Yes - My Orders Last 24 Hours: My Active Orders 05/20/16 17:13 oxyCODONE 5 mg PO Q4H PRN 05/20/16 20:00 Vital Signs [RC] QID Ibuprofen [Motrin] 800 mg PO Q8H Sodium Chloride 0.9% [Saline Flush] 10 ml FLUSH Q12HR 05/21/16 00:00 Acetaminophen [Tylenol Extra Strength] 1,000 mg PO Q8H 05/21/16 13:30 Promethazine [Phenergan] 25 mg IM Q6H PRN 05/21/16 18:00 Fluconazole [Diflucan] 100 mg PO ONETIME ONE 05/22/16 08:00 Fluconazole [Diflucan] 50 mg PO DAILY - Plan Plan:: Patient is admitted to Dr Adkins, started on IV Vanco and Merrem. Blood cultures are obtained. Ultrasound of RLE ordered. Tomasz monitor blood sugars. Patient requires inpatient status as failed outpatient treatment was done. Given IM Rocephin in the clinic, pharmacy to check as hospital records shows intolerance to it. Pharmacy to follow IV Vanco. Recheck labs in the morning. Patient had no further questions and agreed to the plan of care. Carmela Vega,VENANCIO 05/20/16 Jed Chawla MD Fevers off and on today. Leg a little better- less pain. Labs slight improvement except elevated LFTs. Continue therapy. 05/21/16 Jed Chawla MD Feeling better today. Less fever. Reddness of leg improving. Pain in leg is improved. Labs improving. Continue IV antibiotics. Low dose diflucan for candidiasis prophylaxis.
[2016-05-21] MEDS: Donepezil 5 MG Tab PO SCH (21:16)
[2016-05-22] MEDS: Acetaminophen 500 MG Tab PO SCH ×3 (01:57→15:35)
[2016-05-22] MEDS: Sodium Chloride 0.9% 10 ML Syringe FLUSH PRN ×5 (01:59→15:30)
[2016-05-22] MEDS: Ibuprofen 400 MG Tab PO SCH ×2 (03:19→11:07)
[2016-05-22] MEDS: Meropenem 1 GM in Sodium Chloride 0.9% 100 ML IV SCH ×3 (03:21→20:50)
[2016-05-22] MEDS: metFORMIN 500 MG Tab PO SCH (07:27)
[2016-05-22] MEDS: Ferrous Sulfate 325 MG Tab PO SCH (07:29)
[2016-05-22] MEDS: Fluconazole 100 MG Tab PO SCH (07:30)
[2016-05-22] MEDS: Metoprolol Succinate 25 MG Tab.ER PO SCH (07:30)
[2016-05-22] MEDS: Cholecalciferol (Vitamin D3) 1,000 Unit Tab PO SCH (07:31)
[2016-05-22] MEDS: ISONIAZID 300 MG PO SCH (07:31)
[2016-05-22] MEDS: Sodium Chloride 0.9% 10 ML Syringe FLUSH SCH ×2 (07:33→20:54)
[2016-05-22] MEDS: Insulin Aspart 100 Units/ML 3 ML Pen SUBCUT SCH ×3 (07:33→17:11)
[2016-05-22 09:04] LABS: CHLORIDE,CL 109 mmol/L (98-107); SODIUM,NA 144 mmol/L (136-145)
[2016-05-22] MEDS ORDERED: Ibuprofen 400 MG Tab PO PRN (17:44)
--- NOTE | 2016-05-22 17:51 | PCM.PN ---
- General Info Date of Service: 05/22/16 Functional Status: Reports: pain controlled - Review of Systems General: Reports: No Symptoms HEENT: Reports: no symptoms Pulmonary: Reports: no symptoms Cardiovascular: Reports: No Symptoms Gastrointestinal: Reports: No symptoms Genitourinary: Reports: no symptoms Musculoskeletal: Reports: no symptoms Skin: Reports: rash (RLE continues to improve, edema RLE) Neurological: Reports: No Symptoms Psychiatric: Reports: no symptoms - Patient Data Vitals - most recent: Last Vital Signs Temp 97.8 F 05/22/16 15:36 Pulse 81 05/22/16 15:36 Resp 18 05/22/16 15:36 BP 163/68 H 05/22/16 15:36 Pulse Ox 98 05/22/16 15:36 Weight - most recent: 236 lb I&O - last 24 hours: Intake & Output 05/22/16 05/22/16 05/22/16 06:59 14:59 22:59 Intake Total 1050 275 Balance 1050 275 Lab Results last 24 hrs: Laboratory Results - last 24 hr 05/21/16 05/22/16 05/22/16 Range/Units 23:00 07:20 07:20 WBC 6.7 (4.0-10.2) K/uL RBC 3.87 L (4.33-5.41) M/uL Hgb 11.0 L (13.1-16.8) g/dL Hct 34.5 L (39.0-49.0) % MCV 89.1 (84.0-98.0) fL MCH 28.4 (28.2-33.3) pg MCHC 31.9 (31.7-36.0) g/dL RDW 13.6 (11.2-14.1) % Plt Count 147 L (150-350) K/uL Neut % (Auto) 66.2 (45.0-80.0) % Lymph % (Auto) 17.8 (10.0-50.0) % York % (Auto) 12.9 (2.0-14.0) % Eos % (Auto) 2.7 (0.0-5.0) % Baso % (Auto) 0.4 (0.0-2.0) % Neut # (Auto) 4.43 (1.40-7.00) K/uL Lymph # (Auto) 1.19 (0.50-3.50) K/uL York # (Auto) 0.86 (0.00-1.00) K/uL Eos # (Auto) 0.18 (0.00-0.50) K/uL Baso # (Auto) 0.03 (0.00-0.20) K/uL Sodium 144 (136-145) mmol/L Potassium 4.2 (3.5-5.1) mmol/L Chloride 109 H (98-107) mmol/L Carbon Dioxide 27.1 (21.0-32.0) mmol/L BUN 11 (7-18) mg/dL Creatinine 0.75 (0.51-1.17) mg/dL Est Cr Clr Drug Dosing 97.87 mL/min Estimated GFR (MDRD) > 60 mL/min Glucose 148 H (74-106) mg/dL POC Glucose 159 H (65-110) mg/dl Calcium 7.8 L (8.5-10.1) mg/dL Total Bilirubin 0.3 (0.2-1.0) mg/dL AST 27 (15-37) U/L ALT 71 (12-78) U/L Alkaline Phosphatase 100 (46-116) IU/L C-Reactive Protein 19.2 H (<=0.9) mg/dL Total Protein 6.2 L (6.4-8.2) g/dL Albumin 2.3 L (3.4-5.0) g/dL Vancomycin Trough (10-20) ug/mL 05/22/16 05/22/16 05/22/16 Range/Units 07:22 11:06 12:30 WBC (4.0-10.2) K/uL RBC (4.33-5.41) M/uL Hgb (13.1-16.8) g/dL Hct (39.0-49.0) % MCV (84.0-98.0) fL MCH (28.2-33.3) pg MCHC (31.7-36.0) g/dL RDW (11.2-14.1) % Plt Count (150-350) K/uL Neut % (Auto) (45.0-80.0) % Lymph % (Auto) (10.0-50.0) % York % (Auto) (2.0-14.0) % Eos % (Auto) (0.0-5.0) % Baso % (Auto) (0.0-2.0) % Neut # (Auto) (1.40-7.00) K/uL Lymph # (Auto) (0.50-3.50) K/uL York # (Auto) (0.00-1.00) K/uL Eos # (Auto) (0.00-0.50) K/uL Baso # (Auto) (0.00-0.20) K/uL Sodium (136-145) mmol/L Potassium (3.5-5.1) mmol/L Chloride (98-107) mmol/L Carbon Dioxide (21.0-32.0) mmol/L BUN (7-18) mg/dL Creatinine (0.51-1.17) mg/dL Est Cr Clr Drug Dosing mL/min Estimated GFR (MDRD) mL/min Glucose (74-106) mg/dL POC Glucose 143 H 122 H (65-110) mg/dl Calcium (8.5-10.1) mg/dL Total Bilirubin (0.2-1.0) mg/dL AST (15-37) U/L ALT (12-78) U/L Alkaline Phosphatase (46-116) IU/L C-Reactive Protein (<=0.9) mg/dL Total Protein (6.4-8.2) g/dL Albumin (3.4-5.0) g/dL Vancomycin Trough 13.9 (10-20) ug/mL 05/22/16 Range/Units 17:06 WBC (4.0-10.2) K/uL RBC (4.33-5.41) M/uL Hgb (13.1-16.8) g/dL Hct (39.0-49.0) % MCV (84.0-98.0) fL MCH (28.2-33.3) pg MCHC (31.7-36.0) g/dL RDW (11.2-14.1) % Plt Count (150-350) K/uL Neut % (Auto) (45.0-80.0) % Lymph % (Auto) (10.0-50.0) % York % (Auto) (2.0-14.0) % Eos % (Auto) (0.0-5.0) % Baso % (Auto) (0.0-2.0) % Neut # (Auto) (1.40-7.00) K/uL Lymph # (Auto) (0.50-3.50) K/uL York # (Auto) (0.00-1.00) K/uL Eos # (Auto) (0.00-0.50) K/uL Baso # (Auto) (0.00-0.20) K/uL Sodium (136-145) mmol/L Potassium (3.5-5.1) mmol/L Chloride (98-107) mmol/L Carbon Dioxide (21.0-32.0) mmol/L BUN (7-18) mg/dL Creatinine (0.51-1.17) mg/dL Est Cr Clr Drug Dosing mL/min Estimated GFR (MDRD) mL/min Glucose (74-106) mg/dL POC Glucose 208 H (65-110) mg/dl Calcium (8.5-10.1) mg/dL Total Bilirubin (0.2-1.0) mg/dL AST (15-37) U/L ALT (12-78) U/L Alkaline Phosphatase (46-116) IU/L C-Reactive Protein (<=0.9) mg/dL Total Protein (6.4-8.2) g/dL Albumin (3.4-5.0) g/dL Vancomycin Trough (10-20) ug/mL Arnie Results last 24 hrs: Microbiology 05/19/16 12:05 Aerobic Blood Culture - Preliminary Blood - Venous NO GROWTH AFTER 3 DAYS Anaerobic Blood Culture - Preliminary NO GROWTH AFTER 3 DAYS 05/19/16 12:00 Aerobic Blood Culture - Preliminary Blood NO GROWTH AFTER 3 DAYS Anaerobic Blood Culture - Preliminary NO GROWTH AFTER 3 DAYS Med Orders - Current: Current Medications Acetaminophen (Tylenol Extra Strength) 1,000 mg PO Q8H PRN PRN Reason: Fever Betamethasone/Clotrimazole (Lotrisone) 0 gm TOP BID PRN PRN Reason: Rash Cholecalciferol (Vitamin D3) 1,000 units PO DAILY CRISTAL Last Admin: 05/22/16 07:31 Dose: 1,000 units Donepezil HCl (Aricept) 5 mg PO BEDTIME ON LICENSE OF [facility] Last Admin: 05/21/16 21:16 Dose: 5 mg Ferrous Sulfate (Ferrous Sulfate) 325 mg PO DAILY ON LICENSE OF [facility] Last Admin: 05/22/16 07:29 Dose: 325 mg Fluconazole (Diflucan) 50 mg PO DAILY ON LICENSE OF [facility] Last Admin: 05/22/16 07:30 Dose: 50 mg Meropenem 1 gm/ Sodium (Chloride) 100 mls @ 200 mls/hr IV Q8H ON LICENSE OF [facility] Last Admin: 05/22/16 11:07 Dose: 200 mls/hr Vancomycin HCl 1.25 gm/ Sodium (Chloride) 250 mls @ 135 mls/hr IV Q12H ON LICENSE OF [facility] Last Admin: 05/22/16 13:23 Dose: 135 mls/hr Ibuprofen (Motrin) 800 mg PO Q8H PRN PRN Reason: Fever Insulin Aspart (Novolog) 0 unit SUBCUT TIDMEALS ON LICENSE OF [facility] PRN Reason: Protocol Last Admin: 05/22/16 17:11 Dose: 2 units Lisinopril (Prinivil) 10 mg PO BEDTIME ON LICENSE OF [facility] Metformin HCl (Glucophage) 500 mg PO DAILY ON LICENSE OF [facility] Last Admin: 05/22/16 07:27 Dose: 500 mg Metoprolol Succinate (Toprol Xl) 25 mg PO DAILY ON LICENSE OF [facility] Last Admin: 05/22/16 07:30 Dose: 25 mg Isoniazid 300mg (Tablets) 1 each PO DAILY ON LICENSE OF [facility] Last Admin: 05/22/16 07:31 Dose: 1 each Nystatin (Nystatin Crm) 0 gm TOP QID PRN PRN Reason: other Oxycodone HCl (Oxycodone) 5 mg PO Q4H PRN PRN Reason: Pain Promethazine HCl (Phenergan) 25 mg IM Q6H PRN PRN Reason: Nausea/Vomiting Sodium Chloride (Saline Flush) 10 ml FLUSH ASDIRECTED PRN PRN Reason: Keep Vein Open Last Admin: 05/22/16 15:30 Dose: 10 ml Sodium Chloride (Saline Flush) 10 ml FLUSH Q12HR ON LICENSE OF [facility] Last Admin: 05/22/16 07:33 Dose: 10 ml Discontinued Medications Acetaminophen (Tylenol) 650 mg PO Q4H PRN PRN Reason: Pain (Mild 1-3)/fever Last Admin: 05/20/16 17:11 Dose: 650 mg Acetaminophen (Tylenol Extra Strength) 1,000 mg PO Q8H ON LICENSE OF [facility] Last Admin: 05/22/16 15:35 Dose: 1,000 mg Hydrocodone Bitart/Acetaminophen (Meridian 325-5 Mg) 1 tab PO Q4H PRN PRN Reason: Pain (moderate 4-6) Last Admin: 05/20/16 17:10 Dose: 1 tab Enoxaparin Sodium (Lovenox) 40 mg SUBCUT DAILY ON LICENSE OF [facility] Last Admin: 05/21/16 07:29 Dose: 40 mg Fluconazole (Diflucan) 100 mg PO ONETIME ONE Stop: 05/21/16 18:01 Last Admin: 05/21/16 17:09 Dose: 100 mg Vancomycin HCl 1 gm/ Sodium (Chloride) 250 mls @ 165 mls/hr IV Q12H ON LICENSE OF [facility] Last Admin: 05/20/16 00:36 Dose: 165 mls/hr Lactated Ringer's (Ringers, Lactated) 1,000 mls @ 50 mls/hr IV ASDIRECTED ON LICENSE OF [facility] Last Admin: 05/19/16 16:14 Dose: 50 mls/hr Sodium Chloride (Normal Saline) 1,000 mls @ 100 mls/hr IV ASDIRECTED ON LICENSE OF [facility] Stop: 05/20/16 23:00 Last Admin: 05/20/16 13:44 Dose: 100 mls/hr Ibuprofen (Motrin) 600 mg PO ONETIME ONE Stop: 05/20/16 10:23 Last Admin: 05/20/16 10:30 Dose: 600 mg Ibuprofen (Motrin) 800 mg PO Q8H ON LICENSE OF [facility] Last Admin: 05/22/16 11:07 Dose: 800 mg Ondansetron HCl (Zofran) 4 mg IVPUSH Q6H PRN PRN Reason: Nausea/Vomiting - Exam General: alert, oriented HEENT: Pupils equal, Pupils reactive, EOMI, Mucous membr. moist/pink Neck: supple, trachea midline, no JVD Lungs: Clear to auscultation, Normal respiratory effort Cardiovascular: Regular Rate, Regular Rhythm Abdomen: bowel sounds present, soft, no tenderness, no distension (Male) Exam: Deferred Back Exam: normal inspection Extremities: no calf tenderness, edema (RLE) Skin: warm, dry, intact, rash (RLE) Wound/Incisions: healing well, no drainage, erythema improving Neurological: no new focal deficit Psy/Mental Status: alert, normal affect, normal mood - Problem List & Annotations (1) Rheumatoid arthritis SNOMED Code(s): 71215972 Code(s): M06.9 - RHEUMATOID ARTHRITIS, UNSPECIFIED Status: Acute Priority : Medium Current Visit: Yes Qualifiers: Rheumatoid arthritis location: multiple sites Rheumatoid factor presence: unspecified presence Qualified Code(s): M06.9 - Rheumatoid arthritis, unspecified (2) Cellulitis SNOMED Code(s): 953961930 Code(s): L03.90 - CELLULITIS, UNSPECIFIED Status: Acute Current Visit: Yes Qualifiers: Site of cellulitis: extremity Site of cellulitis of extremity: lower extremity Laterality: right Qualified Code(s): L03.115 - Cellulitis of right lower limb (3) Type 2 diabetes mellitus SNOMED Code(s): 79759168 Code(s): E11.9 - TYPE 2 DIABETES MELLITUS WITHOUT COMPLICATIONS Status: Acute Current Visit: Yes Qualifiers: Diabetes mellitus complication status: without complication Diabetes mellitus usp insulin use: unspecified usp insulin use status Qualified Code(s): E11.9 - Type 2 diabetes mellitus without complications (4) COPD (chronic obstructive pulmonary disease) SNOMED Code(s): 52849532 Code(s): J44.9 - CHRONIC OBSTRUCTIVE PULMONARY DISEASE, UNSPECIFIED Status : Chronic Priority: Medium Current Visit: No Annotation/Comment:: No current inhaler or nebulizer therapy. Continue to observe closely by his regular provider with current mild bronchitis (5) Heart disease SNOMED Code(s): 23138826 Code(s): I51.9 - HEART DISEASE, UNSPECIFIED Status: Chronic Priority: Medium Current Visit: No Annotation/Comment:: No recent chest pain or anginal complaints (6) Hyperlipidemia SNOMED Code(s): 18956488 Code(s): E78.5 - HYPERLIPIDEMIA, UNSPECIFIED Status: Chronic Priority: Medium Current Visit: No Annotation/Comment:: Not currently under medical therapy. Continue to observe closely by his regular provider especially light of persistent obesity. Statin therapy also recommended secondary to his history of heart disease (7) Hypertension SNOMED Code(s): 44536213 Code(s): I10 - ESSENTIAL (PRIMARY) HYPERTENSION Status: Chronic Priority : Medium Current Visit: No Qualifiers: Hypertension type: essential hypertension Qualified Code(s): I10 - Essential (primary) hypertension (8) Mixed anxiety depressive disorder SNOMED Code(s): 834454762 Code(s): F41.8 - OTHER SPECIFIED ANXIETY DISORDERS Status: Chronic Priority: Medium Current Visit: No Annotation/Comment:: Stable by patient history (9) Osteoarthritis SNOMED Code(s): 898090426 Code(s): M19.90 - UNSPECIFIED OSTEOARTHRITIS, UNSPECIFIED SITE Status: Chronic Priority: Medium Current Visit: No Annotation/Comment:: Stable by patient history (10) Peptic reflux disease SNOMED Code(s): 10442770 Code(s): K21.9 - GASTRO-ESOPHAGEAL REFLUX DISEASE WITHOUT ESOPHAGITIS Status: Chronic Priority: High Current Visit: No Annotation/Comment:: Refractory to low-dose Zantac. Continue to watch closely by his regular provider especially if no improvement with today's increased Zantac therapy. Note previous history of esophageal stenosis, recurrent burping today, etc. as above. 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 Status: Acute Priority: Medium Current Visit: Yes (12) Abnormal LFTs (liver function tests) SNOMED Code(s): 646824444 Code(s): R79.89 - OTHER SPECIFIED ABNORMAL FINDINGS OF BLOOD CHEMISTRY Status: Acute Priority: High Current Visit: Yes - Problem List Review Problem List Initiated/Reviewed/Updated: Yes - My Orders Last 24 Hours: My Active Orders 05/22/16 08:00 Fluconazole [Diflucan] 50 mg PO DAILY 05/22/16 17:42 Acetaminophen [Tylenol Extra Strength] 1,000 mg PO Q8H PRN 05/22/16 17:44 Ibuprofen [Motrin] 800 mg PO Q8H PRN 05/22/16 20:00 Lisinopril [Prinivil] 10 mg PO BEDTIME - Plan Plan:: Patient is admitted to Dr Adkins, started on IV Vanco and Merrem. Blood cultures are obtained. Ultrasound of RLE ordered. Tomasz monitor blood sugars. Patient requires inpatient status as failed outpatient treatment was done. Given IM Rocephin in the clinic, pharmacy to check as hospital records shows intolerance to it. Pharmacy to follow IV Vanco. Recheck labs in the morning. Patient had no further questions and agreed to the plan of care. Carmela Vega,INFORMATION CONSULTANT 05/20/16 Jed Chawla MD Fevers off and on today. Leg a little better- less pain. Labs slight improvement except elevated LFTs. Continue therapy. 05/21/16 Jed Chawla MD Feeling better today. Less fever. Reddness of leg improving. Pain in leg is improved. Labs improving. Continue IV antibiotics. Low dose diflucan for candidiasis prophylaxis. 05/22/16 Jed Chawla MD Continues slow improvement. CRP minimal decrease. Continue IV antibiotics.
[2016-05-22] MEDS ORDERED: Lisinopril 10 MG Tab PO SCH (20:00)
[2016-05-22] MEDS ORDERED: diphenhydrAMINE 25 MG Cap PO SCH (20:00)
[2016-05-22] MEDS: Donepezil 5 MG Tab PO SCH (20:50)
[2016-05-22] MEDS: Acetaminophen 500 MG Tab PO PRN (20:52)
[2016-05-22] MEDS: oxyCODONE 5 MG Tab PO PRN (20:53)
[2016-05-23] MEDS: Sodium Chloride 0.9% 10 ML Syringe FLUSH PRN ×3 (02:11→13:48)
[2016-05-23] MEDS: Meropenem 1 GM in Sodium Chloride 0.9% 100 ML IV SCH ×2 (04:17→13:00)
[2016-05-23] MEDS: Insulin Aspart 100 Units/ML 3 ML Pen SUBCUT SCH ×2 (07:13→13:22)
[2016-05-23] MEDS: Fluconazole 100 MG Tab PO SCH (07:26)
[2016-05-23] MEDS: metFORMIN 500 MG Tab PO SCH (07:27)
[2016-05-23] MEDS: ISONIAZID 300 MG PO SCH (07:27)
[2016-05-23] MEDS: Ferrous Sulfate 325 MG Tab PO SCH (07:27)
[2016-05-23] MEDS: Cholecalciferol (Vitamin D3) 1,000 Unit Tab PO SCH (07:28)
[2016-05-23] MEDS: Sodium Chloride 0.9% 10 ML Syringe FLUSH SCH (07:28)
[2016-05-23] MEDS: Metoprolol Succinate 25 MG Tab.ER PO SCH (07:28)
[2016-05-23] MEDS: oxyCODONE 5 MG Tab PO PRN (07:31)
[2016-05-23] MEDS: Acetaminophen 500 MG Tab PO PRN (07:31)
[2016-05-23 07:36] LABS: CHLORIDE,CL 106 mmol/L (98-107); SODIUM,NA 141 mmol/L (136-145)
[2016-05-23] MEDS ORDERED: Gadobenate Dimeglumine 529 MG/ML 20 ML SDV IVPUSH ONE (08:35)
--- NOTE | 2016-05-23 13:20 | PCM.PN ---
- General Info Date of Service: 05/23/16 Functional Status: Reports: pain controlled, tolerating diet - Review of Systems General: Reports: Other (increasing pain RLE) HEENT: Reports: no symptoms Pulmonary: Reports: no symptoms Cardiovascular: Reports: No Symptoms Gastrointestinal: Reports: No symptoms Genitourinary: Reports: no symptoms Musculoskeletal: Reports: leg pain (right) Skin: Reports: rash (RLE) Neurological: Reports: No Symptoms Psychiatric: Reports: no symptoms - Patient Data Vitals - most recent: Last Vital Signs Temp 99.6 F 05/23/16 07:31 Pulse 96 05/23/16 07:28 Resp 17 05/23/16 07:13 BP 149/64 H 05/23/16 07:28 Pulse Ox 96 05/23/16 07:13 Weight - most recent: 235 lb 6.4 oz I&O - last 24 hours: Intake & Output 05/22/16 05/23/16 05/23/16 22:59 06:59 14:59 Intake Total 775 Output Total 1200 500 900 Balance -425 -500 -900 Lab Results last 24 hrs: Laboratory Results - last 24 hr 05/22/16 05/22/16 05/23/16 Range/Units 17:06 20:57 07:10 WBC 5.5 (4.0-10.2) K/uL RBC 4.00 L (4.33-5.41) M/uL Hgb 11.2 L (13.1-16.8) g/dL Hct 35.3 L (39.0-49.0) % MCV 88.3 (84.0-98.0) fL MCH 28.0 L (28.2-33.3) pg MCHC 31.7 (31.7-36.0) g/dL RDW 13.4 (11.2-14.1) % Plt Count 179 (150-350) K/uL Neut % (Auto) 58.2 (45.0-80.0) % Lymph % (Auto) 26.7 (10.0-50.0) % [place] % (Auto) 11.6 (2.0-14.0) % Eos % (Auto) 3.1 (0.0-5.0) % Baso % (Auto) 0.4 (0.0-2.0) % Neut # (Auto) 3.23 (1.40-7.00) K/uL Lymph # (Auto) 1.48 (0.50-3.50) K/uL [place] # (Auto) 0.64 (0.00-1.00) K/uL Eos # (Auto) 0.17 (0.00-0.50) K/uL Baso # (Auto) 0.02 (0.00-0.20) K/uL Sodium (136-145) mmol/L Potassium (3.5-5.1) mmol/L Chloride (98-107) mmol/L Carbon Dioxide (21.0-32.0) mmol/L BUN (7-18) mg/dL Creatinine (0.51-1.17) mg/dL Est Cr Clr Drug Dosing mL/min Estimated GFR (MDRD) mL/min Glucose (74-106) mg/dL POC Glucose 208 H 147 H (65-110) mg/dl Calcium (8.5-10.1) mg/dL Total Bilirubin (0.2-1.0) mg/dL AST (15-37) U/L ALT (12-78) U/L Alkaline Phosphatase (46-116) IU/L C-Reactive Protein (<=0.9) mg/dL Total Protein (6.4-8.2) g/dL Albumin (3.4-5.0) g/dL 05/23/16 Range/Units 07:10 WBC (4.0-10.2) K/uL RBC (4.33-5.41) M/uL Hgb (13.1-16.8) g/dL Hct (39.0-49.0) % MCV (84.0-98.0) fL MCH (28.2-33.3) pg MCHC (31.7-36.0) g/dL RDW (11.2-14.1) % Plt Count (150-350) K/uL Neut % (Auto) (45.0-80.0) % Lymph % (Auto) (10.0-50.0) % [place] % (Auto) (2.0-14.0) % Eos % (Auto) (0.0-5.0) % Baso % (Auto) (0.0-2.0) % Neut # (Auto) (1.40-7.00) K/uL Lymph # (Auto) (0.50-3.50) K/uL [place] # (Auto) (0.00-1.00) K/uL Eos # (Auto) (0.00-0.50) K/uL Baso # (Auto) (0.00-0.20) K/uL Sodium 141 (136-145) mmol/L Potassium 4.1 (3.5-5.1) mmol/L Chloride 106 (98-107) mmol/L Carbon Dioxide 26.6 (21.0-32.0) mmol/L BUN 10 (7-18) mg/dL Creatinine 0.78 (0.51-1.17) mg/dL Est Cr Clr Drug Dosing 94.10 mL/min Estimated GFR (MDRD) > 60 mL/min Glucose 112 H (74-106) mg/dL POC Glucose (65-110) mg/dl Calcium 7.9 L (8.5-10.1) mg/dL Total Bilirubin 0.4 (0.2-1.0) mg/dL AST 37 (15-37) U/L ALT 59 (12-78) U/L Alkaline Phosphatase 118 H (46-116) IU/L C-Reactive Protein 14.6 H (<=0.9) mg/dL Total Protein 6.3 L (6.4-8.2) g/dL Albumin 2.3 L (3.4-5.0) g/dL Arnie Results last 24 hrs: Microbiology 05/19/16 12:05 Aerobic Blood Culture - Preliminary Blood - Venous NO GROWTH AFTER 4 DAYS Anaerobic Blood Culture - Preliminary NO GROWTH AFTER 4 DAYS 05/19/16 12:00 Aerobic Blood Culture - Preliminary Blood NO GROWTH AFTER 4 DAYS Anaerobic Blood Culture - Preliminary NO GROWTH AFTER 4 DAYS Med Orders - Current: Current Medications Acetaminophen (Tylenol Extra Strength) 1,000 mg PO Q8H PRN PRN Reason: Fever Last Admin: 05/23/16 07:31 Dose: 1,000 mg Betamethasone/Clotrimazole (Lotrisone) 0 gm TOP BID PRN PRN Reason: Rash Cholecalciferol (Vitamin D3) 1,000 units PO DAILY CRISTAL Last Admin: 05/23/16 07:28 Dose: 1,000 units Diphenhydramine HCl (Benadryl) 50 mg PO BEDTIME [facility] Last Admin: 05/22/16 20:49 Dose: 50 mg Donepezil HCl (Aricept) 5 mg PO BEDTIME [facility] Last Admin: 05/22/16 20:50 Dose: 5 mg Ferrous Sulfate (Ferrous Sulfate) 325 mg PO DAILY [facility] Last Admin: 05/23/16 07:27 Dose: 325 mg Fluconazole (Diflucan) 50 mg PO DAILY [facility] Last Admin: 05/23/16 07:26 Dose: 50 mg Meropenem 1 gm/ Sodium (Chloride) 100 mls @ 200 mls/hr IV Q8H [facility] Last Admin: 05/23/16 13:00 Dose: 200 mls/hr Vancomycin HCl 1.25 gm/ Sodium (Chloride) 250 mls @ 135 mls/hr IV Q12H [facility] Last Admin: 05/23/16 02:12 Dose: 135 mls/hr Ibuprofen (Motrin) 800 mg PO Q8H PRN PRN Reason: Fever Insulin Aspart (Novolog) 0 unit SUBCUT TIDMEALS [facility] PRN Reason: Protocol Last Admin: 05/23/16 07:13 Dose: Not Given Lisinopril (Prinivil) 10 mg PO BEDTIME [facility] Last Admin: 05/22/16 20:51 Dose: 10 mg Metformin HCl (Glucophage) 500 mg PO DAILY [facility] Last Admin: 05/23/16 07:27 Dose: 500 mg Metoprolol Succinate (Toprol Xl) 25 mg PO DAILY [facility] Last Admin: 05/23/16 07:28 Dose: 25 mg Isoniazid 300mg (Tablets) 1 each PO DAILY [facility] Last Admin: 05/23/16 07:27 Dose: 1 each Nystatin (Nystatin Crm) 0 gm TOP QID PRN PRN Reason: other Oxycodone HCl (Oxycodone) 5 mg PO Q4H PRN PRN Reason: Pain Last Admin: 05/23/16 07:31 Dose: 5 mg Promethazine HCl (Phenergan) 25 mg IM Q6H PRN PRN Reason: Nausea/Vomiting Sodium Chloride (Saline Flush) 10 ml FLUSH ASDIRECTED PRN PRN Reason: Keep Vein Open Last Admin: 05/23/16 13:00 Dose: 10 ml Sodium Chloride (Saline Flush) 10 ml FLUSH Q12HR [facility] Last Admin: 05/23/16 07:28 Dose: 10 ml Discontinued Medications Acetaminophen (Tylenol) 650 mg PO Q4H PRN PRN Reason: Pain (Mild 1-3)/fever Last Admin: 05/20/16 17:11 Dose: 650 mg Acetaminophen (Tylenol Extra Strength) 1,000 mg PO Q8H [facility] Last Admin: 05/22/16 15:35 Dose: 1,000 mg Hydrocodone Bitart/Acetaminophen ([place] 325-5 Mg) 1 tab PO Q4H PRN PRN Reason: Pain (moderate 4-6) Last Admin: 05/20/16 17:10 Dose: 1 tab Enoxaparin Sodium (Lovenox) 40 mg SUBCUT DAILY [facility] Last Admin: 05/21/16 07:29 Dose: 40 mg Fluconazole (Diflucan) 100 mg PO ONETIME ONE Stop: 05/21/16 18:01 Last Admin: 05/21/16 17:09 Dose: 100 mg Gadobenate Dimeglumine (Multihance) 20 ml IVPUSH ONETIME ONE Stop: 05/23/16 08:36 Last Admin: 05/23/16 13:04 Dose: 20 ml Vancomycin HCl 1 gm/ Sodium (Chloride) 250 mls @ 165 mls/hr IV Q12H [facility] Last Admin: 05/20/16 00:36 Dose: 165 mls/hr Lactated Ringer's (Ringers, Lactated) 1,000 mls @ 50 mls/hr IV ASDIRECTED [facility] Last Admin: 05/19/16 16:14 Dose: 50 mls/hr Sodium Chloride (Normal Saline) 1,000 mls @ 100 mls/hr IV ASDIRECTED [facility] Stop: 05/20/16 23:00 Last Admin: 05/20/16 13:44 Dose: 100 mls/hr Ibuprofen (Motrin) 600 mg PO ONETIME ONE Stop: 05/20/16 10:23 Last Admin: 05/20/16 10:30 Dose: 600 mg Ibuprofen (Motrin) 800 mg PO Q8H [facility] Last Admin: 05/22/16 11:07 Dose: 800 mg Ondansetron HCl (Zofran) 4 mg IVPUSH Q6H PRN PRN Reason: Nausea/Vomiting - Exam General: alert, cooperative HEENT: Pupils equal, Pupils reactive, EOMI, Mucous membr. moist/pink Neck: trachea midline, no JVD Lungs: Clear to auscultation, Normal respiratory effort Cardiovascular: Regular Rate, Regular Rhythm Abdomen: bowel sounds present, soft, no tenderness, no distension (Male) Exam: Deferred Back Exam: normal inspection Extremities: edema (4+ right LE/foot) Skin: warm, dry, intact Wound/Incisions: drainage (started draining today), erythema (spreading RLE) Neurological: no new focal deficit Psy/Mental Status: alert, normal affect, normal mood - Problem List & Annotations (1) Rheumatoid arthritis SNOMED Code(s): 92706711 Code(s): M06.9 - RHEUMATOID ARTHRITIS, UNSPECIFIED Status: Acute Priority : Medium Current Visit: Yes Qualifiers: Rheumatoid arthritis location: multiple sites Rheumatoid factor presence: unspecified presence Qualified Code(s): M06.9 - Rheumatoid arthritis, unspecified (2) Cellulitis SNOMED Code(s): 560716462 Code(s): L03.90 - CELLULITIS, UNSPECIFIED Status: Acute Current Visit: Yes Qualifiers: Site of cellulitis: extremity Site of cellulitis of extremity: lower extremity Laterality: right Qualified Code(s): L03.115 - Cellulitis of right lower limb (3) Type 2 diabetes mellitus SNOMED Code(s): 26263047 Code(s): E11.9 - TYPE 2 DIABETES MELLITUS WITHOUT COMPLICATIONS Status: Acute Current Visit: Yes Qualifiers: Diabetes mellitus complication status: without complication Diabetes mellitus extermination inspector insulin use: unspecified extermination inspector insulin use status Qualified Code(s): E11.9 - Type 2 diabetes mellitus without complications (4) COPD (chronic obstructive pulmonary disease) SNOMED Code(s): 74170652 Code(s): J44.9 - CHRONIC OBSTRUCTIVE PULMONARY DISEASE, UNSPECIFIED Status : Chronic Priority: Medium Current Visit: No Annotation/Comment:: No current inhaler or nebulizer therapy. Continue to observe closely by his regular provider with current mild bronchitis (5) Heart disease SNOMED Code(s): 93510839 Code(s): I51.9 - HEART DISEASE, UNSPECIFIED Status: Chronic Priority: Medium Current Visit: No Annotation/Comment:: No recent chest pain or anginal complaints (6) Hyperlipidemia SNOMED Code(s): 95176566 Code(s): E78.5 - HYPERLIPIDEMIA, UNSPECIFIED Status: Chronic Priority: Medium Current Visit: No Annotation/Comment:: Not currently under medical therapy. Continue to observe closely by his regular provider especially light of persistent obesity. Statin therapy also recommended secondary to his history of heart disease (7) Hypertension SNOMED Code(s): 31761927 Code(s): I10 - ESSENTIAL (PRIMARY) HYPERTENSION Status: Chronic Priority : Medium Current Visit: No Qualifiers: Hypertension type: essential hypertension Qualified Code(s): I10 - Essential (primary) hypertension (8) Mixed anxiety depressive disorder SNOMED Code(s): 079512591 Code(s): F41.8 - OTHER SPECIFIED ANXIETY DISORDERS Status: Chronic Priority: Medium Current Visit: No Annotation/Comment:: Stable by patient history (9) Osteoarthritis SNOMED Code(s): 438949178 Code(s): M19.90 - UNSPECIFIED OSTEOARTHRITIS, UNSPECIFIED SITE Status: Chronic Priority: Medium Current Visit: No Annotation/Comment:: Stable by patient history (10) Peptic reflux disease SNOMED Code(s): 82869787 Code(s): K21.9 - GASTRO-ESOPHAGEAL REFLUX DISEASE WITHOUT ESOPHAGITIS Status: Chronic Priority: High Current Visit: No Annotation/Comment:: Refractory to low-dose Zantac. Continue to watch closely by his regular provider especially if no improvement with today's increased Zantac therapy. Note previous history of esophageal stenosis, recurrent burping today, etc. as above. 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 Status: Acute Priority: Medium Current Visit: Yes (12) Abnormal LFTs (liver function tests) SNOMED Code(s): 560714966 Code(s): R79.89 - OTHER SPECIFIED ABNORMAL FINDINGS OF BLOOD CHEMISTRY Status: Acute Priority: High Current Visit: Yes - Problem List Review Problem List Initiated/Reviewed/Updated: Yes - My Orders Last 24 Hours: My Active Orders 05/22/16 17:42 Acetaminophen [Tylenol Extra Strength] 1,000 mg PO Q8H PRN 05/22/16 17:44 Ibuprofen [Motrin] 800 mg PO Q8H PRN 05/22/16 20:00 Lisinopril [Prinivil] 10 mg PO BEDTIME diphenhydrAMINE [Benadryl] 50 mg PO BEDTIME 05/23/16 05:11 Tibia Fibula Rt [CR] Routine Tibia Fibula w wo Cont Rt [MR] Routine 05/23/16 13:03 GRAM STAIN [RM] Routine 05/23/16 13:04 CULTURE WOUND + SMEAR [RM] Routine 05/23/16 13:05 Consult to PICC Team [CONS] Routine 05/24/16 05:11 CBC WITH AUTO DIFF [HEME] Routine CMP [COMPREHENSIVE METABOLIC PN,CMP] [CHEM] Routine CRP [C-REACTIVE PROTEIN] [CHEM] Routine SEDIMENTATION RATE MANUAL [HEME] Routine - Plan Plan:: Patient is admitted to Dr Adkins, started on IV Vanco and Merrem. Blood cultures are obtained. Ultrasound of RLE ordered. Tomasz monitor blood sugars. Patient requires inpatient status as failed outpatient treatment was done. Given IM Rocephin in the clinic, pharmacy to check as hospital records shows intolerance to it. Pharmacy to follow IV Vanco. Recheck labs in the morning. Patient had no further questions and agreed to the plan of care. Carmela Vega,CORN PICKER 05/20/16 Jed Chawla MD Fevers off and on today. Leg a little better- less pain. Labs slight improvement except elevated LFTs. Continue therapy. 05/21/16 Jed Chawla MD Feeling better today. Less fever. Reddness of leg improving. Pain in leg is improved. Labs improving. Continue IV antibiotics. Low dose diflucan for candidiasis prophylaxis. 05/22/16 Jed Chawla MD Continues slow improvement. CRP minimal decrease. Continue IV antibiotics. 05/23/16 Jed Chawla MD Leg worse today. Started draining over seay. Reddness spreading. Increased edema. Had MRI today. Results pending. Will get gram stain C&S. Difficult IV access. Consult for PICC. Requires continued inpatient status since leg is clinically worse needs continued IV antibiotics.
--- NOTE | 2016-05-23 15:34 | PCM.SN ---
- Free Text/Narrative Note: 05/23/2016 Patient had MRI of the leg today, received a call from radiologist Dr Proctor stating the area of concern looks like an abscess is developing as fluid and edema is noted around the area highly suspicious of an abscess. Notified Dr Adkins of the radiologist findings. Carmela chirinos,CENTER MANAGER
--- NOTE | 2016-05-23 16:41 | PCM.SN ---
- Free Text/Narrative Note: 05/23/16 Jed Chawla MD Report from radiologist MRI RLE deep abscess forming. Talked to [facility]. Called [facility]. Talked to [facility] and Dr. Khan. She will accept him for transfer.
--- NOTE | 2016-05-23 16:43 | PCM.DCSUM1 ---
Discharge Summary - Discharge Data Discharge Date: 05/23/16 Discharge Disposition: DC/Tfer to Acute Hospital 02 Condition: Good - Discharge Diagnosis/Problem(s) (1) Rheumatoid arthritis SNOMED Code(s): 54016802 ICD Code: M06.9 - RHEUMATOID ARTHRITIS, UNSPECIFIED Status: Acute Priority: Medium Current Visit: Yes Qualifiers: Rheumatoid arthritis location: multiple sites Rheumatoid factor presence: unspecified presence Qualified Code(s): M06.9 - Rheumatoid arthritis, unspecified (2) Cellulitis SNOMED Code(s): 419899994 ICD Code: L03.90 - CELLULITIS, UNSPECIFIED Status: Acute Current Visit: Yes Qualifiers: Site of cellulitis: extremity Site of cellulitis of extremity: lower extremity Laterality: right Qualified Code(s): L03.115 - Cellulitis of right lower limb (3) Type 2 diabetes mellitus SNOMED Code(s): 51694117 ICD Code: E11.9 - TYPE 2 DIABETES MELLITUS WITHOUT COMPLICATIONS Status: Acute Current Visit: Yes Qualifiers: Diabetes mellitus complication status: without complication Diabetes mellitus intermediate insulin use: unspecified intermediate insulin use status Qualified Code(s): E11.9 - Type 2 diabetes mellitus without complications (4) COPD (chronic obstructive pulmonary disease) SNOMED Code(s): 70312781 ICD Code: J44.9 - CHRONIC OBSTRUCTIVE PULMONARY DISEASE, UNSPECIFIED Status : Chronic Priority: Medium Current Visit: No Problem Details: No current inhaler or nebulizer therapy. Continue to observe closely by his regular provider with current mild bronchitis (5) Heart disease SNOMED Code(s): 71202171 ICD Code: I51.9 - HEART DISEASE, UNSPECIFIED Status: Chronic Priority: Medium Current Visit: No Problem Details: No recent chest pain or anginal complaints (6) Hyperlipidemia SNOMED Code(s): 27441505 ICD Code: E78.5 - HYPERLIPIDEMIA, UNSPECIFIED Status: Chronic Priority: Medium Current Visit: No Problem Details: Not currently under medical therapy. Continue to observe closely by his regular provider especially light of persistent obesity. Statin therapy also recommended secondary to his history of heart disease (7) Hypertension SNOMED Code(s): 87767812 ICD Code: I10 - ESSENTIAL (PRIMARY) HYPERTENSION Status: Chronic Priority : Medium Current Visit: No Qualifiers: Hypertension type: essential hypertension Qualified Code(s): I10 - Essential (primary) hypertension (8) Mixed anxiety depressive disorder SNOMED Code(s): 401278325 ICD Code: F41.8 - OTHER SPECIFIED ANXIETY DISORDERS Status: Chronic Priority: Medium Current Visit: No Problem Details: Stable by patient history (9) Osteoarthritis SNOMED Code(s): 687047147 ICD Code: M19.90 - UNSPECIFIED OSTEOARTHRITIS, UNSPECIFIED SITE Status: Chronic Priority: Medium Current Visit: No Problem Details: Stable by patient history (10) Peptic reflux disease SNOMED Code(s): 54964855 ICD Code: K21.9 - GASTRO-ESOPHAGEAL REFLUX DISEASE WITHOUT ESOPHAGITIS Status: Chronic Priority: High Current Visit: No Problem Details: Refractory to low-dose Zantac. Continue to watch closely by his regular provider especially if no improvement with today's increased Zantac therapy. Note previous history of esophageal stenosis, recurrent burping today, etc. as above. 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 Status: Acute Priority: Medium Current Visit: Yes (12) Abnormal LFTs (liver function tests) SNOMED Code(s): 836583732 ICD Code: R79.89 - OTHER SPECIFIED ABNORMAL FINDINGS OF BLOOD CHEMISTRY Status: Acute Priority: High Current Visit: Yes (13) Psoriasis SNOMED Code(s): 9923808 ICD Code: L40.9 - PSORIASIS, UNSPECIFIED Status: Acute Priority: Medium Current Visit: Yes (14) Abscess of right lower leg SNOMED Code(s): 982530885, 620552465 ICD Code: L02.415 - CUTANEOUS ABSCESS OF RIGHT LOWER LIMB Status: Acute Priority: High Current Visit: Yes - Patient Summary/Data Operative Procedure(s) Performed: Colonoscopy Consults: Consultations 05/19/16 11:42 Consult to Case Management [CONS] Routine Consult to Pharmacy [CONS] Routine 05/23/16 13:05 Consult to PICC Team [CONS] Routine - Patient Instructions Diet: Diabetic Diet Activity: As Tolerated - Discharge Plan Home Medications: Home Meds Clotrimazole/Betamethasone Dip [Lotrisone Cream] 1 applic TOP BID PRN 10/30/13 [ History] EPINEPHrine [Epipen] 0.3 mg IM ASDIRECTED PRN 10/30/13 [History] Metoprolol Succinate [Toprol XL] 25 mg PO DAILY 10/30/13 [History] Hydrocodone/Acetaminophen [Hydrocodone-Acetaminophen 5-325] 1 tab PO Q4HR PRN [History] Adalimumab [Humira Pen Crohn-Uc-Hs Starter] ASDIRECTED 05/19/16 [History] Cholecalciferol (Vitamin D3) [Vitamin D3] 1 cap PO DAILY 05/19/16 [History] Citalopram Hydrobromide [Celexa] 1 tab PO DAILY 05/19/16 [History] Donepezil HCl 1 tab PO BEDTIME 05/19/16 [History] Ferrous Sulfate 1 tab PO DAILY 05/19/16 [History] Fluconazole [Diflucan] 1 tab PO DAILY 05/19/16 [History] Ibuprofen 2 tab PO DAILY 05/19/16 [History] Isoniazid 1 tab PO DAILY 05/19/16 [History] Nystatin [Nystatin Crm] 1 applic TOP QID PRN 05/19/16 [History] SitaGLIPtin [Januvia] 1 tab PO DAILY 05/19/16 [History] Sulfamethoxazole/Trimethoprim [Bactrim Ds Tablet] 1 each PO BID 05/19/16 [ History] cefTRIAXone Sodium [Ceftriaxone] 1 gm IM ASDIRECTED 05/19/16 [History] metFORMIN [Glucophage] 1 tab PO DAILY 05/19/16 [History] Patient Handouts: Cellulitis, Adult, Meropenem injection, Vancomycin injection Referrals: Carmela Vega NP [Primary Care Provider] - - Discharge Summary/Plan Comment DC Time >30 min.: No - Patient Data Vitals - Most Recent: Last Vital Signs Temp 98.7 F 05/23/16 12:00 Pulse 82 05/23/16 12:00 Resp 17 05/23/16 12:00 BP 162/77 H 05/23/16 12:00 Pulse Ox 95 05/23/16 12:00 Weight - Most Recent: 235 lb 6.4 oz I&O - Last 24 hours: Intake & Output 05/23/16 05/23/16 05/23/16 06:59 14:59 22:59 Intake Total 480 Output Total 500 1700 350 Balance -500 -1220 -350 Lab Results - Last 24 hrs: Laboratory Results - last 24 hr 05/22/16 05/22/16 05/23/16 Range/Units 17:06 20:57 07:10 WBC 5.5 (4.0-10.2) K/uL RBC 4.00 L (4.33-5.41) M/uL Hgb 11.2 L (13.1-16.8) g/dL Hct 35.3 L (39.0-49.0) % MCV 88.3 (84.0-98.0) fL MCH 28.0 L (28.2-33.3) pg MCHC 31.7 (31.7-36.0) g/dL RDW 13.4 (11.2-14.1) % Plt Count 179 (150-350) K/uL Neut % (Auto) 58.2 (45.0-80.0) % Lymph % (Auto) 26.7 (10.0-50.0) % [place] % (Auto) 11.6 (2.0-14.0) % Eos % (Auto) 3.1 (0.0-5.0) % Baso % (Auto) 0.4 (0.0-2.0) % Neut # (Auto) 3.23 (1.40-7.00) K/uL Lymph # (Auto) 1.48 (0.50-3.50) K/uL [place] # (Auto) 0.64 (0.00-1.00) K/uL Eos # (Auto) 0.17 (0.00-0.50) K/uL Baso # (Auto) 0.02 (0.00-0.20) K/uL Sodium (136-145) mmol/L Potassium (3.5-5.1) mmol/L Chloride (98-107) mmol/L Carbon Dioxide (21.0-32.0) mmol/L BUN (7-18) mg/dL Creatinine (0.51-1.17) mg/dL Est Cr Clr Drug Dosing mL/min Estimated GFR (MDRD) mL/min Glucose (74-106) mg/dL POC Glucose 208 H 147 H (65-110) mg/dl Calcium (8.5-10.1) mg/dL Total Bilirubin (0.2-1.0) mg/dL AST (15-37) U/L ALT (12-78) U/L Alkaline Phosphatase (46-116) IU/L C-Reactive Protein (<=0.9) mg/dL Total Protein (6.4-8.2) g/dL Albumin (3.4-5.0) g/dL 05/23/16 Range/Units 07:10 WBC (4.0-10.2) K/uL RBC (4.33-5.41) M/uL Hgb (13.1-16.8) g/dL Hct (39.0-49.0) % MCV (84.0-98.0) fL MCH (28.2-33.3) pg MCHC (31.7-36.0) g/dL RDW (11.2-14.1) % Plt Count (150-350) K/uL Neut % (Auto) (45.0-80.0) % Lymph % (Auto) (10.0-50.0) % [place] % (Auto) (2.0-14.0) % Eos % (Auto) (0.0-5.0) % Baso % (Auto) (0.0-2.0) % Neut # (Auto) (1.40-7.00) K/uL Lymph # (Auto) (0.50-3.50) K/uL [place] # (Auto) (0.00-1.00) K/uL Eos # (Auto) (0.00-0.50) K/uL Baso # (Auto) (0.00-0.20) K/uL Sodium 141 (136-145) mmol/L Potassium 4.1 (3.5-5.1) mmol/L Chloride 106 (98-107) mmol/L Carbon Dioxide 26.6 (21.0-32.0) mmol/L BUN 10 (7-18) mg/dL Creatinine 0.78 (0.51-1.17) mg/dL Est Cr Clr Drug Dosing 94.10 mL/min Estimated GFR (MDRD) > 60 mL/min Glucose 112 H (74-106) mg/dL POC Glucose (65-110) mg/dl Calcium 7.9 L (8.5-10.1) mg/dL Total Bilirubin 0.4 (0.2-1.0) mg/dL AST 37 (15-37) U/L ALT 59 (12-78) U/L Alkaline Phosphatase 118 H (46-116) IU/L C-Reactive Protein 14.6 H (<=0.9) mg/dL Total Protein 6.3 L (6.4-8.2) g/dL Albumin 2.3 L (3.4-5.0) g/dL DAVON Results - Last 24 hrs: Microbiology 05/19/16 12:05 Aerobic Blood Culture - Preliminary Blood - Venous NO GROWTH AFTER 4 DAYS Anaerobic Blood Culture - Preliminary NO GROWTH AFTER 4 DAYS 05/19/16 12:00 Aerobic Blood Culture - Preliminary Blood NO GROWTH AFTER 4 DAYS Anaerobic Blood Culture - Preliminary NO GROWTH AFTER 4 DAYS Med Orders - Current: Current Medications Acetaminophen (Tylenol Extra Strength) 1,000 mg PO Q8H PRN PRN Reason: Fever Last Admin: 05/23/16 07:31 Dose: 1,000 mg Betamethasone/Clotrimazole (Lotrisone) 0 gm TOP BID PRN PRN Reason: Rash Cholecalciferol (Vitamin D3) 1,000 units PO DAILY [facility] Last Admin: 05/23/16 07:28 Dose: 1,000 units Diphenhydramine HCl (Benadryl) 50 mg PO BEDTIME [facility] Last Admin: 05/22/16 20:49 Dose: 50 mg Donepezil HCl (Aricept) 5 mg PO BEDTIME [facility] Last Admin: 05/22/16 20:50 Dose: 5 mg Ferrous Sulfate (Ferrous Sulfate) 325 mg PO DAILY [facility] Last Admin: 05/23/16 07:27 Dose: 325 mg Fluconazole (Diflucan) 50 mg PO DAILY [facility] Last Admin: 05/23/16 07:26 Dose: 50 mg Meropenem 1 gm/ Sodium (Chloride) 100 mls @ 200 mls/hr IV Q8H [facility] Last Admin: 05/23/16 13:00 Dose: 200 mls/hr Vancomycin HCl 1.25 gm/ Sodium (Chloride) 250 mls @ 135 mls/hr IV Q12H [facility] Last Admin: 05/23/16 13:47 Dose: 135 mls/hr Ibuprofen (Motrin) 800 mg PO Q8H PRN PRN Reason: Fever Insulin Aspart (Novolog) 0 unit SUBCUT TIDMEALS [facility] PRN Reason: Protocol Last Admin: 05/23/16 13:22 Dose: Not Given Lisinopril (Prinivil) 10 mg PO BEDTIME [facility] Last Admin: 05/22/16 20:51 Dose: 10 mg Metformin HCl (Glucophage) 500 mg PO DAILY [facility] Last Admin: 05/23/16 07:27 Dose: 500 mg Metoprolol Succinate (Toprol Xl) 25 mg PO DAILY [facility] Last Admin: 05/23/16 07:28 Dose: 25 mg Isoniazid 300mg (Tablets) 1 each PO DAILY [facility] Last Admin: 05/23/16 07:27 Dose: 1 each Nystatin (Nystatin Crm) 0 gm TOP QID PRN PRN Reason: other Oxycodone HCl (Oxycodone) 5 mg PO Q4H PRN PRN Reason: Pain Last Admin: 05/23/16 07:31 Dose: 5 mg Promethazine HCl (Phenergan) 25 mg IM Q6H PRN PRN Reason: Nausea/Vomiting Sodium Chloride (Saline Flush) 10 ml FLUSH ASDIRECTED PRN PRN Reason: Keep Vein Open Last Admin: 05/23/16 13:48 Dose: 10 ml Sodium Chloride (Saline Flush) 10 ml FLUSH Q12HR [facility] Last Admin: 05/23/16 07:28 Dose: 10 ml Discontinued Medications Acetaminophen (Tylenol) 650 mg PO Q4H PRN PRN Reason: Pain (Mild 1-3)/fever Last Admin: 05/20/16 17:11 Dose: 650 mg Acetaminophen (Tylenol Extra Strength) 1,000 mg PO Q8H [facility] Last Admin: 05/22/16 15:35 Dose: 1,000 mg Hydrocodone Bitart/Acetaminophen ([place] 325-5 Mg) 1 tab PO Q4H PRN PRN Reason: Pain (moderate 4-6) Last Admin: 05/20/16 17:10 Dose: 1 tab Enoxaparin Sodium (Lovenox) 40 mg SUBCUT DAILY [facility] Last Admin: 05/21/16 07:29 Dose: 40 mg Fluconazole (Diflucan) 100 mg PO ONETIME ONE Stop: 05/21/16 18:01 Last Admin: 05/21/16 17:09 Dose: 100 mg Gadobenate Dimeglumine (Multihance) 20 ml IVPUSH ONETIME ONE Stop: 05/23/16 08:36 Last Admin: 05/23/16 13:04 Dose: 20 ml Vancomycin HCl 1 gm/ Sodium (Chloride) 250 mls @ 165 mls/hr IV Q12H [facility] Last Admin: 05/20/16 00:36 Dose: 165 mls/hr Lactated Ringer's (Ringers, Lactated) 1,000 mls @ 50 mls/hr IV ASDIRECTED [facility] Last Admin: 05/19/16 16:14 Dose: 50 mls/hr Sodium Chloride (Normal Saline) 1,000 mls @ 100 mls/hr IV ASDIRECTED [facility]ST[facility] Stop: 05/20/16 23:00 Last Admin: 05/20/16 13:44 Dose: 100 mls/hr Ibuprofen (Motrin) 600 mg PO ONETIME ONE Stop: 05/20/16 10:23 Last Admin: 05/20/16 10:30 Dose: 600 mg Ibuprofen (Motrin) 800 mg PO Q8H [facility] Last Admin: 05/22/16 11:07 Dose: 800 mg Ondansetron HCl (Zofran) 4 mg IVPUSH Q6H PRN PRN Reason: Nausea/Vomiting *Q Meaningful Use (DIS) - VTE *Q VTE Criteria *Q: - Stroke *Q Stroke Criteria *Q: - AMI *Q AMI Criteria *Q:
[2016-05-23 17:41] VITALS: BP 174/84
== END 2016-05-23 17:45 | DRG 950 ==
LOC: LL.MS 11:40
PROVIDERS: ADMIT Nurse Practitioner Family; ATTEND Family Medicine
PROC: 02H633Z Insertion of Infusion Device into Right Atrium, Percutaneous Approach (ICD-10-PCS; principal; 2016-05-23)
DX: L03.115 Cellulitis of right lower limb (principal); M06.9 Rheumatoid arthritis, unspecified; E11.9 Type 2 diabetes mellitus without complications; Z79.4 Long term (current) use of insulin; J44.9 Chronic obstructive pulmonary disease, unspecified; I51.9 Heart disease, unspecified; E78.5 Hyperlipidemia, unspecified; I10 Essential (primary) hypertension; F41.8 Other specified anxiety disorders; M19.90 Unspecified osteoarthritis, unspecified site; K21.9 Gastro-esophageal reflux disease without esophagitis; R79.89 Other specified abnormal findings of blood chemistry; L40.9 Psoriasis, unspecified; L02.415 Cutaneous abscess of right lower limb; Z87.891 Personal history of nicotine dependence; Z86.11 Personal history of tuberculosis
CPT/HCPCS: 36415; 36569; 71020; 73590-RT; 73720-RT; 80053; 80202; 81001; 82962; 83605; 83735; 85025; 86140; 87040; 87070; 87086; 87205; 93971; A9270-GY; A9577; J1650; J1815-GY; J2185; J3370; J7030; J7050; J7120